=== PATIENT | female | born 1960 | race Caucasian/White ===

== ENCOUNTER → 2021-10-06 | Outpatient (CLI) | payer OTHER ==
[~2021-10-06] MED LIST: SODIUM CHLORIDE 0.9% 500 ML 500 ML in EMPTY BAG 1 BAG IV PRN; ZOLEDRONIC ACID 5 MG in SODIUM CHLORIDE 0.9% 100 ML IV NR
[2021-10-06 13:39] VITALS: BP 125/76; PULSE 97; RESP 16; TEMP 97.9
== END ==
LOC: PROCWHC3 13:25
PROVIDERS: ATTEND Internal Medicine
DX: M81.0 Age-related osteoporosis without current pathological fracture (principal)
CPT/HCPCS: 96365; J3489

== ENCOUNTER → 2023-03-20 | Outpatient (CLI) | payer OTHER ==
--- NOTE | 2023-03-20 20:21 | CTL ---
EXAMINATION TYPE: CT Low Dose Lung DATE OF EXAM ORDERED: 03/20/2023 HISTORY: Nicotine dependence. Lung cancer screening CT DLP: 66.[address] CTDI: 1.9 mGy Automated exposure control for dose reduction was used. SCREENING VISIT: Initial COMPARISON: None TECHNIQUE: Low dose computed tomography scan was performed through the chest at 1 mm thick sections a nd reconstructed images in the coronal plane at [address] DIAGNOSTIC QUALITY: Satisfactory FINDINGS: LUNG NODULES: Present, detailed below: 1. There is a small peripheral density in the left lateral upper lobe measuring 0.3 cm. Series 6 imag e 18. LUNGS: COPD: Severity: None Fibrosis: Severity: None Lymph nodes: None Other findings: There is an azygos fissure, normal variant. RIGHT PLEURAL SPACE: Effusion: None Calcification: None Thickening: None Pneumothorax: None LEFT PLEURAL SPACE: Effusion: Calcification: None Thickening: None Pneumothorax: None HEART: Heart Size: Normal Coronary calcification: None Pericardial effusion: None OTHER FINDINGS: Upper abdomen: Normal Bony thorax: Normal Supraclavicular region: Normal Other: Ascending thoracic aorta at the level the main pulmonary artery measures 8.1 cm. The main pul monary artery at the bifurcation measures 2.6 cm. IMPRESSION: 1. Benign appearing findings FOLLOW UP CT CHEST RECOMMENDATION: Follow-up low-dose CT chest [address] LUNG RAD: 2
== END | disposition home or self-care (01) ==
LOC: RADCTMAIN 09:42
PROVIDERS: ATTEND Internal Medicine Critical Care Medicine
DX: Z12.2 Encounter for screening for malignant neoplasm of respiratory organs (principal); F17.200 Nicotine dependence, unspecified, uncomplicated
CPT/HCPCS: 71271

== ENCOUNTER → 2023-07-25 | Outpatient (CLI) | payer OTHER ==
[2023-07-25 16:59] LABS: INR 0.9 (<1.2); Partial Thromboplastin Time 22.9 sec (22.0-30.0); Prothrombin Time 9.9 sec (10.0-12.5)
[2023-07-25 20:21] LABS: HCT 47.9 % (37.2-46.3); HGB 14.9 g/dL (12.0-15.0); MCH 29.6 pg (27.0-32.0); MCHC 31.1 g/dL (32.0-37.0); Mean Platelet Volume 11.7 FL (9.5-12.2); NRBC Per 100 WBC 0 X 10*3/uL (0.00-0.01); Platelet Count 276 X 10*3/uL (140-440); RBC 5.04 X 10*6/uL (4.10-5.20); RDW 12.9 % (11.5-14.5); WBC 9.71 X 10*3/uL (4.50-10.00)
[2023-07-26 02:35] LABS: ALT 36 U/L (8-44); AST 30 U/L (13-35); Albumin 4.5 g/dL (3.8-4.9); Albumin/Globulin Ratio 1.96 Ratio (1.60-3.17); Alkaline Phosphatase 113 U/L (41-126); BUN/Creat Ratio 15.44 Ratio (12.00-20.00); Blood Urea Nitrogen 13.9 mg/dL (9.0-27.0); Carbon Dioxide 26.5 mmol/L (21.6-31.8); Chloride 104 mmol/L (96-109); Globulin 2.3 g/dL (1.6-3.3); Glucose 98 mg/dL (70-110); Potassium 5.1 mmol/L (3.5-5.5); Sodium 138 mmol/L (135-145); Total Bilirubin 0.2 mg/dL (0.3-1.2); Total Protein 6.8 g/dL (6.2-8.2)
== END | disposition home or self-care (01) ==
LOC: LABWHC1 15:30
PROVIDERS: ATTEND Orthopaedic Surgery
DX: M47.22 Other spondylosis with radiculopathy, cervical region (principal); M48.02 Spinal stenosis, cervical region
CPT/HCPCS: 36415; 80053; 82306; 85027; 85610; 85730

== ENCOUNTER → 2023-08-06 | Outpatient (CLI) | payer OTHER | END | disposition home or self-care (01) | LOC: LABPAT 09:10 | PROVIDERS: ATTEND Orthopaedic Surgery | DX: Z01.812 Encounter for preprocedural laboratory examination (principal); M47.22 Other spondylosis with radiculopathy, cervical region; M48.02 Spinal stenosis, cervical region; Z22.322 Carrier or suspected carrier of Methicillin resistant Staphylococcus aureus | CPT/HCPCS: 86850; 86900; 86901; 87070 ==

== ENCOUNTER 2023-08-13 10:41 | Observation (INO) | payer OTHER ==
--- NOTE | 2023-08-12 06:42 | P.HPOR ---
History of Present Illness H&P Date: 07/31/23 .D:Date: 07/31/23 : 10:42am .T:Title: [facility] History and Physical Date of :64 [id number]: NKDA Age: 63 year Height: 5'5" Weight: 126 lbs BMI: 20.97 kg/m2 Occupation: Disabled VAS: 7 Hand:Right Spine Surgery Risk Review Ms. Cloud is presenting for evaluation of cervical pain. It was my pleasure to have seen and examined Ms. Cloud. In our visit today we have had a chance to go over subjective complaints, physical examination findings and treatments including the natural course history without intervention and various interventional options. The patients imaging demonstrates: XRay Cervical AP/lateral 2 views taken at [facility] on 04/03/23 of Cervical Spine:images reviewed today with the patient and demonstrate spondylotic changes C5 through C7 with disc height loss facet arthropathy and flattening of the normal cervical lordosis. No fractures noted no instability C1-C2 or occipital cervical joints MRI of the Cervical Spine completed at [facility] on 12/13/2022: images reviewed today with the patient and demonstrate disc bulging C5 to C7 with moderate central stenosis. There is some bilateral foraminal stenosis related to this which is [id number]. Disc height loss is noted spondylosis desiccation ligamental hypertrophy noted. No fractures or other dislocations noted. On physical exam, Ms. Cloud demonstrates: An ache-like pain throughout the neck that radiates down into the bilateral upper extremities, associated with numbness and tingling. The patient reports experiencing increased weakness throughout the arms and decreased hand dexterity. She notes a shooting pain in both of her thumbs. Since last visit patient has received 2 steroid injections, the last being on 06/05, both with no relief. The patient notes that her symptoms are exacerbated by all activity, which makes it difficult for her to complete many of her daily tasks. The patient reports experiencing moderate sleep disturbances related to her ongoing pain and associated symptoms. I have explained to the patient that as their condition progresses it will cause further neurological deficits and eventual paralysis. Based on the patients imaging, physical exam, and the rapid progression and disabling nature of their symptoms, at this time I recommend surgery in the form of a: C5-7 ACDF I discussed the risk and benefits of this procedure at length with Ms. Cloud. The patient agreed to considered pursuing the procedure abovementioned. Prior to surgery, she should follow up with her PCP (Cardio, ID, IM etc) for clearance. Questions were invited and answered, and the patient wishes to proceed as outlined below. Currently, I am recommendin.C5-7 ACDF 2.Follow up with PCP for surgical clearance 3.Review of surgical risks and benefits as well as an educational packet on the proposed surgical procedure. Risks: All surgical procedures come with inherent risks, including those related to positioning, anesthesia, intraoperative findings, and postoperative complications. It is important to understand that surgery does not come with any guarantee of a successful outcome as complications and adverse events are always possible. The patient was given a handout in office today discussing the surgical procedure and risks associated with the intervention, both of which were discussed with the patient. These risks include but are not limited to the following: * Experiencing same, different or even worse symptoms in back, neck, arms, or legs compared to before surgery. Requiring further surgery or other forms of treatment presently or at some time in the future at same or other levels of the intended spine surgery. On an extreme but fortunately relatively rare basis severe complication such as blindness, stroke, heart attack, temporary and/or permanent nerve injury, paralysis, coma, or may occur, sometimes without known explanation. Surgical complications may include but are not limited to risk of infection, fluid accumulation in the surgical dissection site, including a seroma or hematoma, that requires additional surgery, wound drainage, bleeding, new numbness or weakness, vision changes/loss, spinal fluid leakage, non-healing and/or infected incision, headaches, difficulty or inability to swallow, hoarseness, hemopneumothorax, pneumothorax, impotence, retrograde ejaculation, vaginal dryness; injury to nerves, spinal cord, blood vessels, lymphatics or other vital organs (i.e., bowel injury, injury to the great vessels); heterotopic bone formation; complications related to the hardware such as screws, rods, cages including misplaced hardware, device failure, instrumentation at the wrong spine level, hardware fracture/breakage, or hardware loosening; vertebral failure of the spinal column above or below the newly placed hardware; retained surgical instrumentations or devices and the need for further surgery. * Medical risks of the planned spine surgery include but are not limited to generalized Infections to the whole body or local areas outside of the surgical site (sepsis), heart attack, bleeding, anaphylaxis, meningitis, s eizure, epilepsy, hearing loss, burn brink, laceration of the head or other areas of the body, bruising, hypersensitivity of the skin, bladder over distension; allergic reaction; shoulder injury related to positioning; fat, blood and air clots to other areas of the body like heart, lungs, brain; failure of internal organs such as lungs, kidneys, liver and excessive bleeding. If blood transfusions are necessary, note that transfusions may cause intolerance reactions such as anaphylaxis or other complex reactions. Despite best efforts, the results of spine surgery might not heal in terms of bone, soft tissues such as skin, fascia, ligaments, and joints. Additionally, in order to achieve best possible results, spine surgery may be carried out beyond the initially planned levels and involve decompression, fusion including insertion of hardware at levels other than the original intended area of surgical interest change some portions of the procedure in order to ensure the best possible outcomes. With spine surgery and spinal fusion, there are different off label uses of instrumentation (devices, implants and hardware) as well as biological substances (bone morphogenic proteins, demineralized bone matrix) as well as using extra bone from allograft sources (i.e. cadaver bone) or autograft (iliac crest bone, ribs, or the spine itself). The patient has been given information about these practices and their inherent risks and benefits. [facility] is an educational center that serves as a training facility for neurosurgical and orthopedic SECURITY INTELLIGENCE ANALYST and Nursing students. Physician assistants are medically trained surgical providers who function in the outpatient, inpatient, and operating room setting under the direct supervision of the attending surgeon. [facility] has multiple operating rooms with single and overlapping rooms running daily. They currently function under the required guidelines as produced by the Senate Finance Committee with regards to the overlapping rooms and will continue to comply with changes to this policy as they occur. The requirements include and are complied with as follows: (1) the critical portions of the overlapping rooms will not occur at the same time, (2) the attending physician will be physically present during the critical portions of the procedure and immediately available during the entire case, and (3) a back-up attending is designated should the primary attending not be immediately available. The patient has had a chance to review all the listed information, has been given print outs detailing this information, and has had all his/her questions answered to their satisfaction. It was my pleasure to have seen and examined Ms. Cloud. In our visit today we have had a chance to go over my understanding of our patient's current condition, the natural course history without intervention and various interventional options. Questions were invited and answered, and the patient wishes to proceed as outlined above. I have seen and examined the patient for 25 minutes and we have spent more than 50% of the time in repeat and detailed counseling about the patient's condition, its natural course history with out and as much as can be predicted with surgery and re-review of various surgical treatment options. In conclusion, Ms. Cloud requested we proceed with the above suggested surgery and are willing to accept risks and limitations of the suggested surgery as nature of the disease process and our best attempts at treatment for the condition. Thank you again for allowing us to be part of your patient's care. Please don't hesitate to contact me if you have any further questions. Follow-up: Post procedure Patient Education: (Informational booklet, instructions, etc) given at today's appointment: Yes .ED:Patient Education: Y Medications Reviewed: YES In our visit today Ms. Cloud and I have had a chance to go over my understanding of the patient's current condition, the natural course history without intervention and various interventional options. Questions were invited and answered, and the patient wishes to proceed as outlined above. I will be sure to keep you updated afterMs. Cloud returns here for further follow-up. Thank you again for your referral. Please do not hesitate to contact me if you have any further questions. Signed and authenticated by: Srikanth [facility]vasive Spine [facility] [address] [facility], [address] [address] This message is confidential, intended only for the named recipient(s) and may contain information that is privileged or exempt from disclosure under applicable law. If you are not the intended recipient(s), you are notified that the dissemination, distribution or copying of this information is strictly prohibited. If you received this message in error, please notify the sender then delete this message. Patient verbalizes understanding of the information discussed. The above note was initiated by Shelli Pizarro, physician recording service center assistant for Dr. Srikanth Hayes. This note has been reviewed by Dr. Hayes, who has made his personal changes and impressions for this document. CC: Kaylene Fregoso NP # SIGNED BY Srikanth Hayes (GOO)07/31/2023 11:44AM Past Medical History Past Medical History: Asthma, Cancer, COPD, GERD/Reflux, Hyperlipidemia, Osteoarthritis (OA), Rheumatoid Arthritis (RA), Thyroid Disorder Additional Past Medical History / Comment(s): hx. thyroid cancer-had surg., osteoporosis History of Any Multi-Drug Resistant Organisms: None Reported Past Surgical History: Appendectomy, Cholecystectomy, Hysterectomy Additional Past Surgical History / Comment(s): total thyroidectomy, left mastoid surg., myringotomy & tubes Past Anesthesia/Blood Transfusion Reactions: No Reported Reaction Smoking Status: Current every day smoker - Past Family History Mother Family Medical History: No Reported History Sister(s) Family Medical History: Pulmonary Embolus Additional Family Medical History / Comment(s): w/Covid Medications and Allergies Home Medications Medication Instructions Recorded Confirmed Type Albuterol Nebulized [Ventolin 2.5 mg INHALATION Q6H PRN 08/08/23 08/08/23 History Nebulized] Albuterol Sulfate [Proair 1 puff INHALATION Q6H PRN 08/08/23 08/08/23 History Digihaler] Atorvastatin [Lipitor] 40 mg PO DAILY 08/08/23 08/08/23 History Dicyclomine HCl 10 mg PO AC-TID 08/08/23 08/08/23 History Fluticasone Nasal [place] [Flonase 1 spray EA NOSTRIL DAILY 08/08/23 08/08/23 History Nasal [place]] Fluticasone/Umeclidin/Vilanter 1 puff INHALATION DAILY 08/08/23 08/08/23 History [Trelegy Ellipta 200-62.5-25] Gabapentin [Neurontin] 300 mg PO BID 08/08/23 08/08/23 History Levocetirizine Dihydrochloride 5 mg PO DAILY 08/08/23 08/08/23 History [Xyzal] Levothyroxine Sodium [Synthroid] 88 mcg PO DAILY 08/08/23 08/08/23 History Naproxen [Naprosyn] 500 mg PO BID 08/08/23 08/08/23 History Omeprazole [PriLOSEC] 20 mg PO AC-BRKFST 08/08/23 08/08/23 History oxyBUTYnin chloride [oxyBUTYnin 5 mg PO DAILY 08/08/23 08/08/23 History chloride ER] Allergies Allergy/AdvReac Type Severity Reaction Status Date / Time No Known Allergies Allergy Verified 08/08/23 14:24 Physical Examination Osteopathic Statement: *. No significant issues noted on an osteopathic structural exam other than those noted in the History and Physical/Consult.
[~2023-08-13 10:41] MED LIST changes: +ACETAMINOPHEN TAB 500 MG TAB PO PRN; +GABAPENTIN 300 MG CAP PO PRN; +ONDANSETRON 4 MG/2 ML VIAL IVP PRN; -SODIUM CHLORIDE 0.9% 500 ML 500 ML in EMPTY BAG 1 BAG IV PRN; +TRANEXAMIC 1,000 MG/100ML-NACL 1,000 MG in SALINE 1 100ML.BAG IVPB PRN; -ZOLEDRONIC ACID 5 MG in SODIUM CHLORIDE 0.9% 100 ML IV NR
[2023-08-13] MEDS: LACTATED RINGERS 1,000 ML IV SCH ×3 (11:23→13:05)
[2023-08-13] MEDS ORDERED: MIDAZOLAM 2 MG/2 ML VIAL ONE (13:05)
[2023-08-13] MEDS ORDERED: KETAMINE HCL IN 0.9 % NACL 50 MG/5 ML SYRINGE ONE (13:05)
[2023-08-13] MEDS ORDERED: GLYCOPYRROLATE 0.2 MG/ML 2 ML VIAL ONE (13:05)
[2023-08-13] MEDS ORDERED: TRANEXAMIC 1,000 MG/100ML-NACL PREMIX BAG ONE (13:05)
[2023-08-13] MEDS ORDERED: NEOSTIGMINE 1 MG/ML 10 ML VIAL ONE (13:05)
[2023-08-13] MEDS ORDERED: hydrALAZINE HCL 20 MG/ML 1 ML VIAL ONE (13:05)
[2023-08-13] MEDS ORDERED: LIDOCAINE 1% INJ 10MG/ML (20 ML MDV) ONE (13:05)
[2023-08-13] MEDS ORDERED: fentaNYL (PF) 50 MCG/ML 2 ML AMP ONE (13:05)
[2023-08-13] MEDS ORDERED: HYDROmorphone (PF) 1 MG/ML ONE (13:05)
[2023-08-13] MEDS ORDERED: PROPOFOL 10 MG/ML 20 ML VIAL IV ONE (13:05)
[2023-08-13] MEDS ORDERED: LABETALOL SYRINGE 5 MG/ML (4 ML SYR) ONE (13:05)
[2023-08-13] MEDS ORDERED: ROCURONIUM 10 MG/ML (5 ML VIAL) IV ONE (13:05)
[2023-08-13] MEDS ORDERED: SUCCINYLCHOLINE CHLORIDE 200 MG/10 ML VIAL IV ONE (13:05)
[2023-08-13] MEDS ORDERED: THROMBIN (BOVINE) 5,000 UNIT VIAL TOPICAL ONE (13:41)
[2023-08-13] MEDS ORDERED: GELATIN SPONGE,ABSORB (LARGE) 1 EACH SPONGE TOPICAL ONE (13:41)
[2023-08-13] MEDS ORDERED: MAGNESIUM HYDROXIDE 2,400 MG/30 ML CUP PO PRN (16:01)
[2023-08-13] MEDS ORDERED: HYDROcodone/APAP 5-325MG 1 EACH TAB PO PRN (16:01)
[2023-08-13] MEDS ORDERED: CYCLOBENZAPRINE 5 MG TAB PO PRN (16:01)
[2023-08-13] MEDS ORDERED: HYDROmorphone 1 MG/ML 1 ML SYRINGE IVP PRN (16:01)
[2023-08-13] MEDS ORDERED: NA PHOS,M-B/NA PHOS,DI-BA 133 ML ENEMA RECTAL PRN (16:01)
--- NOTE | 2023-08-13 16:10 | P.OP ---
Date of Procedure: 08/13/23 Preoperative Diagnosis: 1. 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 NECK KPAIN 3. UE RADICULOPATHY WITH PARESTHESIAS 4. UE WEAKNESS 5. COMPLEX MEDICAL PATIENT Postoperative Diagnosis: 1. 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 NECK KPAIN 3. UE RADICULOPATHY WITH PARESTHESIAS 4. UE WEAKNESS 5. COMPLEX MEDICAL PATIENT Procedure(s) Performed: 1. C5-6, C6-7 ANTERIOR CERVICAL DISECTOMY AND ARTHRODESIS (05449, [id number]) 2. APPLICATION OF NON-INTEGRATED ANTERIOR PLATES (48191) 3. INSERTION OF BIOMECHANICAL DEVICE C5-6, C6-7 ([id number]) USE OF IONM USE OF IO MICROSCOPE Implants: GLOBUS COALITION INTERBODY X2 GLOBUS COLAITION PLATE X2 VENTRIS BIO Anesthesia: GETA Surgeon: Srikanth Hayes Diathermy Equipment Repairer #1: Glenna Faye (WAS PRESENT AND ASSISTED WITH ALL ASPECTS OF THE CASE FROM POSITION TO CLOSURE) Estimated Blood Loss (ml): 50 IV fluids (ml): 2,200 Urine output (ml): 0 Pathology: none sent Condition: stable Disposition: PACU Indications for Procedure: Ms. Cloud is presenting for evaluation of cervical pain. It was my pleasure to have seen and examined Ms. Cloud. In our visit today we have had a chance to go over subjective complaints, physical examination findings and treatments including the natural course history without intervention and various interventional options. The patients imaging demonstrates: XRay Cervical AP/lateral 2 views taken at [facility] on 04/03/23 of Cervical Spine:images reviewed today with the patient and demonstrate spondylotic changes C5 through C7 with disc height loss facet arthropathy and flattening of the normal cervical lordosis. No fractures noted no instability C1-C2 or occipital cervical joints MRI of the Cervical Spine completed at [facility] on 12/13/2022: images reviewed today with the patient and demonstrate disc bulging C5 to C7 with moderate central stenosis. There is some bilateral foraminal stenosis related to this which is [id number]. Disc height loss is noted spondylosis desiccation ligamental hypertrophy noted. No fractures or other dislocations noted. On physical exam, Ms. Cloud demonstrates: An ache-like pain throughout the neck that radiates down into the bilateral upper extremities, associated with numbness and tingling. The patient reports experiencing increased weakness throughout the arms and decreased hand dexterity. She notes a shooting pain in both of her thumbs. Since last visit patient has received 2 steroid injections, the last being on 06/05, both with no relief. The patient notes that her symptoms are exacerbated by all activity, which makes it difficult for her to complete many of her daily tasks. The patient reports experiencing moderate sleep disturbances related to her ongoing pain and associated symptoms. I have explained to the patient that as their condition progresses it will cause further neurological deficits and eventual paralysis. Based on the patients imaging, physical exam, and the rapid progression and disabling nature of their symptoms, at this time I recommend surgery in the form of a: C5-7 ACDF I discussed the risk and benefits of this procedure at length with Ms. Cloud. The patient agreed to considered pursuing the procedure abovementioned. Prior to surgery, she should follow up with her PCP (Cardio, ID, IM etc) for clearance. Questions were invited and answered, and the patient wishes to proceed as outlined below. Currently, I am recommendin.C5-7 ANTERIOR CERVICAL DISCECTOMY AND FUSION Description of Procedure: C5-7 ACDF The patient was seen and examined in the preoperative area. All preoperative protocols were followed. Informed consent was obtained, risks and benefits of the procedure were discussed at length. Risks including bleeding infection damage to the surrounding tissue and risk of reoperation were discussed with the patient. Risk of anesthesia up to and including was discussed with the patient. These are outlined in the risk review. They were willing to accept these risks and all the risks of surgery. The patient was given a weight-based dose of antibiotics in the form of 2 g Ancef. The patient was seen and evaluated by the anesthesia team who deemed them fit for surgery. The site was marked, the patient was willing to proceed with the procedure. The patient was transferred to the operative suite by the Department of anesthesia. They were then drifted off to sleep by the department anesthesia and GETA was performed. The patient tolerated this well. Alejandro catheter was placed by nursing staff, a-traumatically. Once confirmation of lines and ventilation the patient was transferred to a Supine Zander table very carefully. All bony prominences including wrists, elbows, axilla, chest, hips, and thighs, and feet were padded very well. Special attention was paid to the genitalia, and these were padded accordingly. SCDs were placed on bilateral lower extremities and were connected. Arms were well padded and placed at their side thumbs up. Once in position, again we confirmed good ventilation capabilities and that lines were running appropriately. The patients Cervical spine was then exposed. 1010s were placed outlining the incision site. Standard alcohol was used to clean the incision site and allowed to dry. C-arm was used to bio-luz the patient and confirm level for incision which was marked with a skin marker. Operative briefing was performed with all teams and everyone in agreement to proceed. The patient was then prepped and draped in a normal sterile fashion. Timeout was then performed, and all parties agreed with the procedure to be performed. Transverse skin incision was then made on the right side of the patient's neck 3 cm and dissection taken down to the platysma which was split transversely. Sub platysma flap was made, and interval identified between SCM and medial structures. Omohyoid was visualized and protected. Blunt dissection taken down to the anterior cervical fascia which was identified. Blunt probe was then placed and lateral image taken which confirmed levels for operation. These levels were then marked with a bovi. Subperiosteal dissection of the longissimus muscles were then done over these levels identifying uncovertebral joints bilaterally. Retractor was then placed deep to these muscles and held in place with a bed arm. Starting at C6-7, [place] pins were placed into C6 and C7 and gentle distraction taken out over the levels. Nya rongeur used to remove disc material. Operating microscope brought in for visualization. Complete discectomy performed at this level with curette, rongure and pituitary. High speed sarah used to remove osteophytes anteriorly and posteriorly until PLL was identified. 6-0 up curette then used to identify the canal and resect the PLL. 2-0 and 3-0 [place] used then to remove PLL and disc herniation and perfo rmed b/l foraminotomies. Once good decompression was accomplished, meticulous hemostasis was performed. Sizers were then placed under lateral fluoroscopy until the desired height and lordosis. Cage was then selected, packed with autograft and allograft and placed under lateral imaging. Once in good position it was tested and stable. Motors run before and after cage placement were stable. The wound was irrigated, and autograft placed lateral to the cage anteriorly for fusion. [place] pin was then removed from C7 and placed into C5. Gentle distraction taken out over C5-6 now. Complete discectomy done at C5-6 as described including decompression, b/l foraminotomies and PLL resection. Burring of endplates was minimal, osteophytes removed as described. Spacers were then sized and placed under lateral imaging. Cage selected, packed with graft and placed under lateral images. Once in position, meticulous hemostasis performed, and motors remained stable before and after cage placement. AP image confirmed good placement of cages. Wound was irrigated. Separate plates were then selected and placed over C6-7 and C5-6 with screws into each body. Each screw had good purchase and was locked to the plate and cage with the locking mechanism. Final AP and lateral images taken confirmed good placement of hardware and good reduction and tenriism of height. The wound was then irrigated copiously with NSS. Surgicel placed deep in the wound. A deep drain placed out a separate incision and sewed into place. Layered closure then performed with 3- 0 Vicryl in the platysma and subQ tissue. 4-0 Strata fix in the subcuticular tissue. The wound was then cleaned, and dried and skin glue placed. Once glue dried on Opifoam was placed. The patient was then transferred back to their hospital bed a-traumatically. The drain continued to hold suction. They were placed in a soft collar. They were then awakened by the department of anesthesia having tolerated the procedur e well without complications.
[2023-08-13] MEDS: HYDROmorphone 0.5 MG/0.5 ML SYRINGE IVP PRN ×3 (16:22→20:34)
--- NOTE | 2023-08-13 16:22 | XR ---
Fluoroscopy History: CERVICAL FUSION anterior cervical discectomy and fusion C5-7. FL time 50.2 seconds. DAP 1.2004. [address] Carl ríos.
[2023-08-13] MEDS ORDERED: ALBUTEROL NEBULIZED 2.5 MG/3 ML INHALATION PRN (19:04)
[2023-08-13] MEDS ORDERED: ALBUTEROL SULFATE 90 MCG INHALATION PRN (19:04)
[2023-08-13] MEDS: GABAPENTIN 300 MG CAP PO SCH (20:33)
--- NOTE | 2023-08-13 20:57 | FL ---
Intraoperative/procedural fluoroscopic services were provided. Total fluoroscopy time is 50.2 seconds with a total of 4 submitted images to PACS. Please see the operative/procedural note for further det ails. DAP: 1.5094 Gycm2
[2023-08-13] MEDS: ONDANSETRON 4 MG/2 ML VIAL IVP PRN (22:03)
[2023-08-13] MEDS: HYDROcodone/APAP 10-325MG 1 EACH TAB PO PRN (22:33)
[2023-08-13] MEDS ORDERED: TRIMETHOBENZAMIDE 100 MG/ML 2 ML VIAL IM PRN (23:30)
[2023-08-14] MEDS: PANTOPRAZOLE 40 MG/10 ML VIAL IVP SCH ×3 (00:35→20:53)
--- NOTE | 2023-08-14 00:42 | CT ---
EXAM: CT Cervical Spine Without Intravenous Contrast CLINICAL HISTORY: ITS.REASON CT Reason: s/p C5-C7 TECHNIQUE: Axial computed tomography images of the cervical spine without intravenous contrast. CTDI is 8.34 mGy and DLP is 247.6 mGy-cm. This CT exam was performed using one or more of the following dose reduction techniques: automated exposure control, adjustment of the mA and/or kV according to patient size, and/or use of iterative reconstruction technique. COMPARISON: No relevant prior studies available. FINDINGS: Vertebrae: Unfused posterior arch of C1. ACDF changes at C5-6 and C6- 7. Hardware is intact. Osteopenia. Cervical degenerative disc disease and facet arthropathy. Straightening of the cervical spine. Minimal degenerative listhesis. No acute fracture. Discs/spinal canal/neural foramina: Multilevel neural foraminal stenosis. This is most severe at C5-6 and C6-7. Disc osteophyte complexes result in mild to moderate degrees of spinal canal stenosis, greatest at C5-6 and C6-7. Soft tissues: Small foci of gas in the soft tissues of the neck the right. Small amount of retropharyngeal gas. There is some prevertebral edema. Minimal fluid in the soft tissues of the neck at the level of the drainage catheter. Lung apices: Emphysematous changes in the lungs. Tubes, lines and devices: There is a drainage catheter in the right neck with tip terminating at the level of C4-C5. IMPRESSION: 1. ACDF changes at C5-6 and C6-7. Hardware is intact. 2. Cervical degenerative disc disease and facet arthropathy as described.
[2023-08-14] MEDS: HYDROcodone/APAP 10-325MG 1 EACH TAB PO PRN ×3 (05:35→18:32)
[2023-08-14] MEDS: LEVOTHYROXINE 88 MCG TAB PO SCH (05:36)
[2023-08-14] MEDS: HYDROmorphone 0.5 MG/0.5 ML SYRINGE IVP PRN (06:47)
[2023-08-14] MEDS ORDERED: PANTOPRAZOLE 40 MG TABLET PO SCH (07:30)
[2023-08-14 08:53] LABS: Blood Urea Nitrogen 6.6 mg/dL (9.0-27.0); Calcium 8.5 mg/dL (8.7-10.3); Chloride 104 mmol/L (96-109); Glucose 109 mg/dL (70-110); Potassium 4.2 mmol/L (3.5-5.5); Sodium 140 mmol/L (135-145)
[2023-08-14] MEDS: SENNOSIDES-DOCUSATE SODIUM 1 EACH TAB PO SCH (08:55)
[2023-08-14] MEDS: ATORVASTATIN 40 MG TAB PO SCH (08:55)
--- NOTE | 2023-08-14 08:57 | P.PN ---
Subjective Progress Note Date: 08/14/23 Principal diagnosis: 1. C5-C6, C6-C7 severe spondylosis with stenosis 2. Neck pain 3. Bilateral upper extremity radiculopathy with paresthesias 4. Bilateral upper extremity weakness Patient seen and examined this morning. Patient is resting comfortably in bed. This is a patient with removal of hard cervical collar, RADHA drain has been removed. Surgical incision is well approximated with glue intact. No active drainage. New dressing has been applied, hard cervical collar replaced. Patient continues to have numbness to her bilateral upper extremities which was present prior to procedure. Patient has complaint of difficulty with swallowing, encouraged patient to continue to utilize ice therapy and trial soft foods. Medications will be adjusted. Informed patient that she will be working with physical therapy today, pending evaluation home with home care later today. No acute concerns. Objective - Vital Signs Vital signs: Vital Signs Temp 98.5 F 08/14/23 00:50 Pulse 66 08/14/23 00:50 Resp 18 08/14/23 00:50 BP 144/80 08/14/23 00:50 Pulse Ox 98 08/14/23 00:50 FiO2 Intake & Output 08/13/23 08/14/23 08/14/23 18:59 06:59 18:59 Intake Total 1950 Output Total 30 515 Balance 1920 -515 Weight 55.1 kg Intake: IV 1950 Output: Drainage 15 Neck 15 Urine 500 Estimated Blood Loss 30 Other: # Voids 1 - Exam Physical Examination General: The patient is awake and alert, in no acute distress Skin: Skin is warm and dry with no obvious rashes or lesions. Right anterior cervical incision, edges are well approximated with glue intact. RADHA drain has been removed. New dressing has been applied. Eye: Pupils are equal, round and reactive to light, extra-ocular movements are intact; there is normal conjunctiva bilaterally. Neck: The neck is supple, there is mild tenderness with limited range of motion due to pain and surgical procedure; hard cervical collar intact. Cardiovascular: There is a regular rate and rhythm. No murmur, rub or gallop is appreciated. Respiratory: Lungs are clear to auscultation, respirations are non-labored, breath sounds are equal. Gastrointestinal: Soft, non-distended, non-tender abdomen. Back: There is no tenderness to palpation in the midline, paralumbar, parathoracic or buttocks region. There is no obvious deformity . Musculoskeletal: ROM limited secondary to pain and stiffness from surgical procedure. Muscle strength in all major muscle groups of bilateral upper extremities 4/5, bilateral lower extremities 5/5. Neurological: CN 2-12 intact. There are no obvious motor or sensory deficits. Movement and coordination equal and intact. Sensory exam to light touch intact C5-T1 and intact from L2-S1. Reflexes 2/4 in bilateral upper and lower extremities. Negative Hoffmans, babinski, and clonus signs. Psychiatric: Cooperative, appropriate mood & affect, normal judgment. Assessment and Plan Assessment: Postop day 1: C5-C7 ACDF 1. C5-C6, C6-C7 severe spondylosis with stenosis 2. Neck pain 3. Bilateral upper extremity radiculopathy with paresthesias 4. Bilateral upper extremity weakness Plan: -Appreciate contaminated land consultant and team management. -Activity: Ambulate QID, OOB all meals, up and about, limit lifting bending twisting to less than 5 lbs. Use walker or cane if needed for stability. -Daily PT/OT, increase ambulation strength and balance. -Hard cervical collar at all times, may remove for showers until follow-up. -Pain control: Adequate at this time -Meds: reviewed -GI ppx: senna, Miralax -DVT PPX: Heparin -Hygiene: Shower today. Maintain dressing clean and dry. -Encourage IS 10x/hr -Dispo: Anticipate discharge home later today with homecare *I reviewed and discussed this case with my attending Dr. Hayes, whom has reviewed this chart and films and is in agreement with assessment and plan of care as outlined above. I have personally seen and examined the patient, performed the documentation and the assessment and plan as written. Number of minutes spent on the visit: 20m.
[2023-08-14] MEDS: OXYBUTYNIN XL 5 MG TAB.ER.24 PO SCH (08:58)
[2023-08-14] MEDS: GABAPENTIN 300 MG CAP PO SCH ×2 (08:58→20:52)
[2023-08-14] MEDS: ONDANSETRON 4 MG/2 ML VIAL IVP PRN (09:04)
[2023-08-14] MEDS: FLUTICASONE 50MCG/SPRAY NASAL 16GM EA NOSTRIL SCH (09:33)
[2023-08-14 09:35] LABS: Basophils # (A) 0.04 X 10*3/uL (0.00-0.10); Basophils % (A) 0.2 %; Eosinophils # (A) 0 X 10*3/uL (0.04-0.35); Eosinophils % (A) 0 %; HCT 41.5 % (37.2-46.3); HGB 13.1 g/dL (12.0-15.0); Lymphocytes % (A) 10.6 %; MCH 30.4 pg (27.0-32.0); MCHC 31.6 g/dL (32.0-37.0); MCV 96.3 FL (80.0-97.0); Mean Platelet Volume 11.8 FL (9.5-12.2); Monocytes # (A) 1.09 X 10*3/uL (0.20-1.00); Monocytes % (A) 6.4 %; NRBC Per 100 WBC 0 X 10*3/uL (0.00-0.01); Neutrophils # (A) 13.89 X 10*3/uL (1.80-7.70); Neutrophils % (A) 82.3 %; Platelet Count 237 X 10*3/uL (140-440); RBC 4.31 X 10*6/uL (4.10-5.20); RDW 13.1 % (11.5-14.5); WBC 16.91 X 10*3/uL (4.50-10.00)
--- NOTE | 2023-08-14 14:14 | CONS ---
CONSULTATION REASON FOR CONSULTATION: Advice regarding asthma and other medical issues, requested by Orthopedic Surgery. HISTORY OF PRESENT ILLNESS: This is a 63-year-old woman with a past medical history of asthma, COPD, and other multiple medical problems, admitted after C5-C7 anterior cervical diskectomy and fusion. Postoperatively, the patient had some vomiting. There is no history of any fever, rigors, or chills at this time. PAST MEDICAL HISTORY: Asthma, COPD, GERD, history of EtOH per chart. HOME MEDICATIONS: Prior to admission, albuterol. Doses and rest of medications noted. ALLERGIES: None. FAMILY HISTORY: No history of heart disease or strokes in the family. SOCIAL HISTORY: History of smoking. REVIEW OF SYSTEMS: A 14-point review is negative except as mentioned earlier. PHYSICAL EXAMINATION: VITAL SIGNS: Pulse is 63, blood pressure 119/60, respirations 16. HEENT: Conjunctivae normal. NECK: No JVD. Status post surgery. CARDIOVASCULAR: S1, S2 muffled. RESPIRATIONS: Breath sounds diminished at the bases. ABDOMEN: Soft, nontender. LEGS: No edema. NERVOUS SYSTEM: Nonfocal. LABORATORY DATA: WBC 16. Rest of the labs are noted. ASSESSMENT: 1. Status post cervical surgery, C5-C7 anterior fusion. 2. Increased WBC. 3. Postoperative nausea and vomiting. 4. Acute gastritis. 5. Asthma, chronic obstructive pulmonary disease. 6. Gastroesophageal reflux disease. 7. History of EtOH. RECOMMENDATIONS: Recommend to continue current medications, continue symptomatic treatment. Protonix. CIWA protocol may be initiated. The patient has no signs of withdrawal. Otherwise, continue to monitor. UA with micro. We will follow the patient closely. Resume home medications. Further recommendations to follow. MMODL / IJN: [id number] /
[2023-08-14] MEDS: SYMBICORT 160-4.5 MCG INHALER INHALATION SCH ×2 (15:12→21:40)
[2023-08-14] MEDS: DICYCLOMINE 10 MG CAP PO SCH (16:15)
[2023-08-14] MEDS: IPRATROPIUM 0.5 MG/2.5 ML NEBU INHALATION SCH ×2 (16:50→21:40)
[2023-08-14 22:29] LABS: Appearance,Urine Clear (Clear); Bilirubin,Urine Negative (Negative); Blood,Urine Negative (Negative); Color,Urine Yellow; Glucose,Urine (UA) Negative (Negative); Ketones,Urine Negative (Negative); Leukocyte Esterase,Urine Negative (Negative); Nitrite,Urine Negative (Negative); Protein,Urine Negative (Negative); Urobilinogen,Urine <2.0 mg/dL (<2.0)
[2023-08-15] MEDS: HYDROcodone/APAP 10-325MG 1 EACH TAB PO PRN ×2 (02:16→08:35)
[2023-08-15] MEDS: LEVOTHYROXINE 88 MCG TAB PO SCH (06:25)
[2023-08-15] MEDS: LACTATED RINGERS 1,000 ML IV SCH (06:25)
[2023-08-15] MEDS: DICYCLOMINE 10 MG CAP PO SCH ×2 (06:25→12:36)
[2023-08-15 07:20] LABS: Basophils % (A) 0 %; Eosinophils # (A) 0.1 k/uL (0-0.7); Eosinophils % (A) 1 %; HCT 39.1 % (34.0-46.0); HGB 12.7 gm/dL (11.4-16.0); Lymphocytes # (A) 2.3 k/uL (1.0-4.8); Lymphocytes % (A) 17 %; MCH 31.2 pg (25.0-35.0); MCHC 32.6 g/dL (31.0-37.0); MCV 95.8 fL (80.0-100.0); Mean Platelet Volume 8.4; Monocytes # (A) 0.6 k/uL (0-1.0); Monocytes % (A) 4 %; Neutrophils # (A) 10.2 k/uL (1.3-7.7); Neutrophils % (A) 77 %; Platelet Count 183 k/uL (150-450); RBC 4.08 m/uL (3.80-5.40); RDW 12.4 % (11.5-15.5); WBC 13.3 k/uL (3.8-10.6)
[2023-08-15 08:12] VITALS: BP 129/61; RESP 17; TEMP 98.6
[2023-08-15] MEDS: SYMBICORT 160-4.5 MCG INHALER INHALATION SCH (08:24)
[2023-08-15] MEDS: IPRATROPIUM 0.5 MG/2.5 ML NEBU INHALATION SCH ×2 (08:24→11:28)
--- NOTE | 2023-08-15 08:34 | P.PN ---
Subjective Progress Note Date: 08/15/23 Principal diagnosis: 1. C5-C6, C6-C7 severe spondylosis with stenosis 2. Neck pain 3. Bilateral upper extremity radiculopathy with paresthesias 4. Bilateral upper extremity weakness Patient seen and examined this morning. Patient is resting comfortably in bed. She reports that she is feeling much better today. Patient denies any nausea or vomiting. Surgical dressing to the anterior cervical spine is clean dry and intact. Hard cervical collar is in place. Patient is looking forward to discharge later today. No acute concerns. Objective - Vital Signs Vital signs: Vital Signs Temp 98.6 F 08/15/23 07:17 Pulse 78 08/15/23 08:25 Resp 17 08/15/23 07:17 BP 129/61 08/15/23 07:17 Pulse Ox 98 08/15/23 08:25 FiO2 Intake & Output 08/14/23 08/15/23 08/15/23 18:59 06:59 18:59 Output Total 200 Balance -200 Output: Emesis 200 Other: # Voids 2 1 - Exam Physical Examination General: The patient is awake and alert, in no acute distress Skin: Skin is warm and dry with no obvious rashes or lesions. Right anterior cervical incision, dressing CDI. Eye: Pupils are equal, round and reactive to light, extra-ocular movements are intact; there is normal conjunctiva bilaterally. Neck: The neck is supple, there is mild tenderness with limited range of motion due to pain and surgical procedure; hard cervical collar intact. Cardiovascular: There is a regular rate and rhythm. No murmur, rub or gallop is appreciated. Respiratory: Lungs are clear to auscultation, respirations are non-labored, breath sounds are equal. Gastrointestinal: Soft, non-distended, non-tender abdomen. Back: There is no tenderness to palpation in the midline, paralumbar, parathoracic or buttocks region. There is no obvious deformity . Musculoskeletal: ROM limited secondary to pain and stiffness from surgical procedure. Muscle strength in all major muscle groups of bilateral upper extremities 4/5, bilateral lower extremities 5/5. Neurological: CN 2-12 intact. There are no obvious motor or sensory deficits. Movement and coordination equal and intact. Sensory exam to light touch intact C5-T1 and intact from L2-S1. Reflexes 2/4 in bilateral upper and lower extremities. Negative Hoffmans, babinski, and clonus signs. Psychiatric: Cooperative, appropriate mood & affect, normal judgment. - Labs CBC & Chem 7: 08/15/23 07:10 08/14/23 05:49 Labs: Abnormal Lab Results - Last 24 Hours (Table) 08/14/23 08/14/23 08/15/23 Range/Units 05:49 05:49 07:10 WBC 16.91 H 13.3 H (4.50-10.00) X 10*3/uL MCHC 31.6 L (32.0-37.0) g/dL Immature Gran # 0.09 H (0.00-0.04) X 10*3/uL Neutrophils # 13.89 H 10.2 H (1.80-7.70) X 10*3/uL Monocytes # 1.09 H (0.20-1.00) X 10*3/uL Eosinophils # 0 L (0.04-0.35) X 10*3/uL BUN 6.6 L (9.0-27.0) mg/dL BUN/Creatinine Ratio 11.00 L (12.00-20.00) Ratio Calcium 8.5 L (8.7-10.3) mg/dL Assessment and Plan Assessment: Postop day 2: C5-C7 ACDF 1. C5-C6, C6-C7 severe spondylosis with stenosis 2. Neck pain 3. Bilateral upper extremity radiculopathy with paresthesias 4. Bilateral upper extremity weakness Plan: -Appreciate fitness consultant and team management. -Activity: Ambulate QID, OOB all meals, up and about, limit lifting bending t wisting to less than 5 lbs. Use walker or cane if needed for stability. -Daily PT/OT, increase ambulation strength and balance. -Hard cervical collar at all times, may remove for showers until follow-up. -Pain control: Adequate at this time -Meds: reviewed -GI ppx: senna, Miralax -DVT PPX: Heparin -Hygiene: Shower today. Maintain dressing clean and dry. -Encourage IS 10x/hr -Dispo: Anticipate discharge home later today with homecare *I reviewed and discussed this case with my attending Dr. Hayes, whom has reviewed this chart and films and is in agreement with assessment and plan of care as outlined above. I have personally seen and examined the patient, performed the documentation and the assessment and plan as written. Number of minutes spent on the visit: 20m.
[2023-08-15] MEDS: OXYBUTYNIN XL 5 MG TAB.ER.24 PO SCH (08:35)
[2023-08-15] MEDS: SENNOSIDES-DOCUSATE SODIUM 1 EACH TAB PO SCH (08:35)
[2023-08-15] MEDS: PANTOPRAZOLE 40 MG/10 ML VIAL IVP SCH (08:35)
[2023-08-15] MEDS: GABAPENTIN 300 MG CAP PO SCH (08:36)
[2023-08-15] MEDS: FLUTICASONE 50MCG/SPRAY NASAL 16GM EA NOSTRIL SCH (08:36)
[2023-08-15] MEDS: ATORVASTATIN 40 MG TAB PO SCH (08:36)
[2023-08-15 08:37] VITALS: PULSE 80
--- NOTE | 2023-08-15 08:50 | P.DS ---
Providers Date of admission: 08/14/23 15:49 Expected date of discharge: 08/15/23 Attending physician: Srikanth Hayes DO Consults: 08/13/23 16:03 Consult Physician Routine Consulting Provider: Erik Kunz Reason/Comments: Medical Management Do you want consulting provider notified?: Yes Primary care physician: Charlie Leiva [facility] Course: Hospital Course: The patient was evaluated preoperatively and found to have the diagnosis of cervical spondylosis with stenosis. They underwent appropriate preoperative care and were willing to undergo the intended procedure. They underwent a successful C5-C7 ACDF, were recovered appropriately and sent to the floor. While on the floor they worked with physical therapy, occupational therapy and nursing to enhance their recovery experience. Their pain was well controlled through their stay and they were started on appropriate medications, DVT ppx modalities, activity and dietary needs. Daily labs were monitored closely, and transfusions were only used when necessary. Medicine as well as other consulting services have made their input and have helped with our team approach and multidisciplinary care. PT milestones have been met and passed and they have made the recommendation of with home care for this patient and treating providers agree with this care path. The patient will be discharged home with appropriate medications, instructions and follow-up information and in stable condition. Patient Condition at Discharge: Good Plan - Discharge Summary Discharge Rx Participant: Yes New Discharge Prescriptions: New cefaDROXiL [Duricef] 500 mg PO Q12HR #10 cap Gabapentin 300 mg PO BID #60 cap HYDROcodone/APAP 10-325MG [[place] 10-325] 1 tab PO Q4-6H PRN #42 tab PRN Reason: Pain Sennosides/Docusate Sodium [Senna Plus 8.6-50 mg Tablet] 1 each PO DAILY PRN #20 tablet PRN Reason: Constipation Cyclobenzaprine [Flexeril] 5 mg PO TID PRN #30 tablet PRN Reason: Muscle Spasm No Action Levothyroxine Sodium [Synthroid] 88 mcg PO DAILY Atorvastatin [Lipitor] 40 mg PO DAILY Albuterol Sulfate [Proair Digihaler] 1 puff INHALATION Q6H PRN PRN Reason: Wheezing Albuterol Nebulized [Ventolin Nebulized] 2.5 mg INHALATION Q6H PRN PRN Reason: Shortness Of Breath Gabapentin [Neurontin] 300 mg PO BID Naproxen [Naprosyn] 500 mg PO BID Levocetirizine Dihydrochloride [Xyzal] 5 mg PO DAILY Fluticasone/Umeclidin/Vilanter [Trelegy Ellipta 200-62.5-25] 1 puff INHALATION DAILY Dicyclomine HCl 10 mg PO AC-TID oxyBUTYnin chloride [oxyBUTYnin chloride ER] 5 mg PO DAILY Fluticasone Nasal [place] [Flonase Nasal [place]] 1 spray EA NOSTRIL DAILY Omeprazole [PriLOSEC] 20 mg PO AC-BRKFST Discharge Medication List Albuterol Nebulized [Ventolin Nebulized] 2.5 mg INHALATION Q6H PRN 08/08/23 [History] Albuterol Sulfate [Proair Digihaler] 1 puff INHALATION Q6H PRN 08/08/23 [History] Atorvastatin [Lipitor] 40 mg PO DAILY 08/08/23 [History] Dicyclomine HCl 10 mg PO AC-TID 08/08/23 [History] Fluticasone Nasal [place] [Flonase Nasal [place]] 1 spray EA NOSTRIL DAILY 08/08/23 [History] Fluticasone/Umeclidin/Vilanter [Trelegy Ellipta 200-62.5-25] 1 puff INHALATION DAILY 08/08/23 [History] Gabapentin [Neurontin] 300 mg PO BID 08/08/23 [History] Levocetirizine Dihydrochloride [Xyzal] 5 mg PO DAILY 08/08/23 [History] Levothyroxine Sodium [Synthroid] 88 mcg PO DAILY 08/08/23 [History] Naproxen [Naprosyn] 500 mg PO BID 08/08/23 [History] Omeprazole [PriLOSEC] 20 mg PO AC-BRKFST 08/08/23 [History] oxyBUTYnin chloride [oxyBUTYnin chloride ER] 5 mg PO DAILY 08/08/23 [History] Cyclobenzaprine [Flexeril] 5 mg PO TID PRN #30 tablet 08/15/23 [Rx] Gabapentin 300 mg PO BID #60 cap 08/15/23 [Rx] HYDROcodone/APAP 10-325MG [[place] 10-325] 1 tab PO Q4-6H PRN #42 tab 08/15/23 [Rx] Sennosides/Docusate Sodium [Senna Plus 8.6-50 mg Tablet] 1 each PO DAILY PRN #20 tablet 08/15/23 [Rx] cefaDROXiL [Duricef] 500 mg PO Q12HR #10 cap 08/15/23 [Rx] Follow up Appointment(s)/Referral(s): Charlie Stubbs [Primary Care Provider] - 1 Week Srikanth Hayes DO [Doctor of Osteopathic Medicine] - 2 Weeks Activity/Diet/Wound Care/Special Instructions: Spine Discharge and Recovery Instructions Date of Surgery: 08/13/2023 Diagnosis: Cervical spondylosis with stenosis Procedure: C5-C7 ACDF Medications: See medication list All medication refills should be obtained through your primary care doctor or your clinic spine surgeon. Please discuss prescription refills at your follow up appointment. Do not call the hospital for medication refills. Activity: Encourage ambulation with assist of walker, Up and about 6-8x daily PT/OT daily work on balance, strength and mobility Up in chair with all meals Shower daily Brace: Use brace when up and about, do not wear in bed or shower Dressing: Leave your dressing in place for a total of 3 days post operatively. Then you may remove your dressing and leave open to air. Keep the area clean and if not able to keep area clean, then cover with sterile gauze and tape. Showering: You may shower 3 days after your procedure allowing soap and water to run over incision. Do not scrub. Do not soak. Blot dry. Follow up: Please confirm a follow up appointment with your surgeon 2 weeks post operatively. Please make an appointment to follow up with your PCP in 1-2 weeks after surgery for evaluation 3 phase, 3-week plan POST OP WEEKS 1-3 1. Lifting/carrying/pushing/pulling limited to less than 5 pounds. 2. Do not sit for longer than 15 minutes at one time. Get up and walk around. Prolonged sitting is NOT advised. If you lay down, see if you can tolerate laying down on you front (belly side) 3. Walk for periods of 15 minutes = 1 mile but no longer; do it multiple times times each day. 4. Ice your low back after activity. POST OP WEEKS 3-6 1. Lifting limited to less than 20 pounds. 2. Do not sit for longer than 30 minutes at a time. Frequently change positions. Use a sit-to stand workstation or take frequent breaks from sitting if you have returned to work. 3. Walk for 30 minutes each day. If possible, do these three or more times a day POST OP WEEKS 6+ At your 6-week appointment we will give you a physical therapy referral to focus on a core stabilization and strengthening program. You should also work on leg & buttock strengthening, hamstring & quadriceps stretching, and continue a low impact aerobic activity program such as swimming, walking, or riding a stationary bicycle. During the initial 6 weeks after your surgery, you are at the highest risk of re-injuring your spine. You should generally avoid BLTs (bending, lifting and twisting combination motions) and follow the above guidelines to reduce the chance of reinjury. You can anticipate post op appointments in our office at approximately 3 weeks and 6 weeks after your surgery. INCISION CARE: If your incision is not draining you do NOT need to cover it with a dressing. Keep your incision clean, dry and intact. In most cases, we apply skin glue, amanda or sutures to the incision at the time of surgery. This will be like a crust or have the appearance of a scab and will fall off in time on its own. The stitches or amanda need to be removed at 3 weeks post op appointment. You may begin to shower 3 days after surgery (this allows the glue to lacy well). However, please avoid scrubbing the incision site or peeling off any of the skin glue. This will ensure optimal healing of your incision. Also, during this time avoid soaking the incision area in water - this includes swimming pools, hot tubs or baths. No ointments, lotions or oils on the incision until your surgeon allows. Leave amanda, sutures or glue in place. Neurological dysfunction that comes on suddenly can also be a sign of a stroke. Below some common symptoms of a stroke are listed: B - balance difficulty such as sudden onset walking or leaning to one side - NEW E - eye problem such as sudden double vision or trouble seeing on one side - NEW F - Facial weakness or numbness on one side - NEW A - Arm or leg weakness or numbness on one side - NEW S - Slurred speech or difficulty with word finding - NEW T - Time is BRAIN! Call 911 as soon as you recognize these symptoms Diet: Consume a regular diet rich in vegetables and lean protein such as chicken or fish. You should consume in a ratio of approximately 20% fats|40% carbohydra erick|40%protein. Vegetables, sweet potatoes, brown rice or quinoa are examples of good carbohydrates. Chips, white bread, cookies and sweets/sugar are examples of bad carbohydrates. Limit your bad carbs, go wild with good carbs. 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 (1) Get Active. Physical activity can help people lose weight, control high blood pressure and cholesterol, feel emotionally better, and sleep better. (2) Control Cholesterol. Avoid a diet high in saturated fat, trans fat, & cholesterol. Limit whole milk & cream, ice cream, butter, egg yolks, processed meats (like sausage and hot dogs), and fatty meats. Choose healthy foods that are low in saturated fat, trans fat and cholesterol which include: Fruits and vegetables, fiber rich grain products (like whole grain pasta and brown rice), lean meat such as chicken, fish, nuts, seeds, and legumes. (3) Eat Better. Eat small portions. Shop at the grocery with a list and do not stray from it. Tips for a healthy diet include: Limit sodium intake to less than 1500mg daily, avoid prepackaged, processed, and fast foods, choose a diet rich in fruits, vegetables, and whole grain, high fiber foods, and limit saturated & cholesterol in your diet. (4) Manage Blood Pressure. If you have high blood pressure, you should have a cuff at home so that you can check your blood pressure regularly. Be sure you have a good cuff. An arm one is generally better than a wrist one. Bring the cuff to a doctor's appointment to validate that the measurements that your cuff are taking are accurate. Take your blood pressure twice daily when you are sitting down and relaxing. Record the numbers in a log and bring this log with you to your doctors' appointments. (5) Lose Weight if your BMI is above 25. A healthy BMI is between 19-25. To calculate Your BMI, you may use a Standard BMI Calculator on the NIH BMI website: <www.nhlbi.nih.gov/guidelines/obesity/BMI/bmicalc.htm>. Weigh oneself daily. If you are overweight, set a goal to lose weight. A pound a week loss if needed is a good target. (6) Reduce Blood Sugar. Limit foods and liquids with "added sugars." (Added sugars include sucrose, fructose, glucose, maltose, dextrose, high fructose corn syrup, corn syrup, concentrated fruit juice and honey). (7) Stop Smoking. If you smoke, quitting smoking is one of the best things that you can do for your health. Smoking increases your risk of heart attack, stroke, and peripheral vascular disease, which is a build-up of plaque in your arteries. Please discard all the cigarettes and lighters in your house. Have a plan for what you will do when you have the urge to smoke. Direct and second- hand smoke shortens your life as well as the lives of your family, friends and others around you. For your health and the health of those around you, please consider quitting! Proper Bending Body Mechanics: Maintain a wide stance with one foot slightly in front of the other. Keep your back straight. Bend utilizing the strength in your hips and knees. Do not bend at the waist. Maintain the lifted object at your waist-level close to your body. Avoid lifting weight that causes immediately pain or pain anywhere in the body afterwards. Smoking/Nicotine If there was ever one thing that you could do to increase your overall health, decrease your risk of cardiovascular problems by about 39% the second you make the choice, it is to STOP SMOKING. Your body's most instant gratification is the second you stop smoking. We have all heard the studies, read the articles but it is true, smoking is extremely bad for your overall health, and moreover it is detrimental to your bone health. Nicotine, IN ANY FORM, kills bone cells, prevents your body from healing fractures, and significantly prolongs healing after surgery. In spine surgery specifically, it increases your risk of not healing your bones to create a fusion and increases your risk of having a revision surgery due to this up to 60%. I know it is hard. I know it feels impossible. But there are ways. Take control of your life. We are here to help you through it. And when you are ready, ask us and we can direct you to help if you desire. Use the START Plan to Quit Smoking (please visit the Helpguide.org website listed below for more information): S = Set a quit date. Choose a date within the next 2 weeks, so you have enough time to prepare without losing your motivation to quit. If you mainly smoke at work, quit on the weekend, so you have a few days to adjust to the change. T = Tell family, friends, and co-workers that you plan to quit. Let your friends and family in on your plan to quit smoking and tell them you need their support and encouragement to stop. Look for a quit bahman who wants to stop smoking as well. You can help each other get through the rough times. A = Anticipate and plan for the challenges you'll face while quitting. Most people who begin smoking again do so within the first 3 months. You can help yourself make it through by preparing ahead for common challenges, such as nicotine withdrawal and cigarette cravings. R = Remove cigarettes and other tobacco products from your home, car, and work. Throw away all your cigarettes (no emergency pack!), lighters, ashtrays, and matches. Wash your clothes and freshen up anything that smells like smoke. Shampoo your car, clean your drapes and carpet, and steam your furniture. T = Talk to your doctor about getting help to quit. Your doctor can prescribe medication to help with withdrawal and suggest other alternatives. If you can't see a doctor, you can get many products over the counter at your local pharmacy or grocery store, including the nicotine patch, nicotine lozenges, and nicotine gum. Resources for Quitting Smoking: <https://www.[place].gov/documents/[facility]/Quit_Tobacco_Re sources_for_patients_313480_7.pdf> Supplementation: Take recommended dosages of Vitamin D and Calcium to help fortify your bones and help them to heal. See your health maintenance packet for dosages and recommended levels. DVT/VTE prophylaxis: You will be given compression stockings from the hospital. Wear these daily for the first two weeks after surgery. You may take them off at night. You may be prescribed a medication to help thin your blood. Take this as directed. If you are not prescribed this medication, early and frequent ambulation has been shown to be the best prophylaxis to deep vein thrombosis and sequelae related to this event. Discharge Disposition: HOME WITH HOME HEALTH SERVICES
== END 2023-08-15 13:25 | disposition home health service (06) ==
LOC: OR 10:41 → 4SSUR 16:05 → OR 08-14 15:32 → 4SSUR 08-14 15:49
PROVIDERS: ADMIT Orthopaedic Surgery; ATTEND Orthopaedic Surgery
DX: M47.22 Other spondylosis with radiculopathy, cervical region (principal); M48.02 Spinal stenosis, cervical region; M25.78 Osteophyte, vertebrae; K29.00 Acute gastritis without bleeding; J44.9 Chronic obstructive pulmonary disease, unspecified; K21.9 Gastro-esophageal reflux disease without esophagitis; E78.5 Hyperlipidemia, unspecified; E89.0 Postprocedural hypothyroidism; F17.200 Nicotine dependence, unspecified, uncomplicated; Z85.850 Personal history of malignant neoplasm of thyroid; Z79.899 Other long term (current) drug therapy; Z79.890 Hormone replacement therapy; Z79.51 Long term (current) use of inhaled steroids
CPT/HCPCS: 96376 ×3; 96365; 96366 ×2; 96372; 96375 ×2; 94640 ×3; 94760 ×2; 97116; 97162; 80048; 85025 ×2; 81003; 72040; 72125; 22551; 22552; 22853 ×2; 20930; 20936; G0378 ×2; C1713; J2250; J0330; J0360; J2710; J3250; J0690 ×2; J2405 ×2; J2001; J3010; J1170 ×4; J2704; C9113 ×2; J1920

== ENCOUNTER 2023-10-11 12:14 | Emergency (ER) | payer OTHER ==
[2023-10-11 12:42] VITALS: RESP 18; TEMP 98.1
--- NOTE | 2023-10-11 13:31 | XR ---
EXAMINATION TYPE: XR lumbar spine 2 or 3V DATE OF EXAM: 10/11/2023 CLINICAL HISTORY: pain TECHNIQUE: Three views of the lumbar spine are submitted. COMPARISON: None. FINDINGS: There are 5 lumbar type vertebral bodies identified. The lumbar spine shows satisfactory alignment w ithout evidence of acute fracture or dislocation. Vertebral body heights are within normal limits. Mild scattered degenerative disc space narrowing and spondylosis. The overlying soft tissue appears unremarkable. IMPRESSION: No acute fracture or dislocation is seen in the lumbar spine. ICD 10 NO FRACTURE, INITIAL EVALUATION
--- NOTE | 2023-10-11 13:31 | XR ---
EXAMINATION TYPE: XR Hip RT and AP Pelvis DATE OF EXAM: 10/11/2023 CLINICAL HISTORY: pain TECHNIQUE: AP and frogleg views of the right hip are obtained. COMPARISON: None. FINDINGS: There is no acute fracture/dislocation evident. The joint space appears within normal li mits. The overlying soft tissue appears unremarkable. Incidental bone island right inferior ischium. IMPRESSION: 1. There is no acute fracture or dislocation. ICD 10 NO FRACTURE, INITIAL EVALUATION
--- NOTE | 2023-10-11 14:18 | ED ---
Lower Extremity Injury HPI - General Chief Complaint: Extremity Injury, Lower Stated Complaint: Groin pain, lower back pain Time Seen by Provider: 10/11/23 12:26 Source: patient, RN notes reviewed Mode of arrival: ambulatory Limitations: no limitations - History of Present Illness Initial Comments: 63-year-old female presents emergency department with chief complaint of groin pain, back pain. Patient states that she tried to flower buncher or picker her on the floor who fell after back surgery. Patient states that she had instant pain to her right groin. Patient states that she has pain rating from her back to her knee. She denies any bowel, bladder retention. Denies any saddle anesthesia. Patient states she does have lower back pain. Patient has a history of lumbar issues. Patient denies any paresthesias - Related Data Home Medications Medication Instructions Recorded Confirmed Albuterol Nebulized [Ventolin 2.5 mg INHALATION Q6H PRN 08/08/23 08/13/23 Nebulized] Albuterol Sulfate [Proair 1 puff INHALATION Q6H PRN 08/08/23 08/13/23 Digihaler] Atorvastatin [Lipitor] 40 mg PO DAILY 08/08/23 08/13/23 Dicyclomine HCl 10 mg PO AC-TID 08/08/23 08/13/23 Fluticasone Nasal Concepcion [Flonase 1 spray EA NOSTRIL DAILY 08/08/23 08/13/23 Nasal Concepcion] Fluticasone/Umeclidin/Vilanter 1 puff INHALATION DAILY 08/08/23 08/13/23 [Trelegy Ellipta 200-62.5-25] Gabapentin [Neurontin] 300 mg PO BID 08/08/23 08/13/23 Levocetirizine Dihydrochloride 5 mg PO DAILY 08/08/23 08/13/23 [Xyzal] Levothyroxine Sodium [Synthroid] 88 mcg PO DAILY 08/08/23 08/13/23 Naproxen [Naprosyn] 500 mg PO BID 08/08/23 08/13/23 Omeprazole [PriLOSEC] 20 mg PO AC-BRKFST 08/08/23 08/13/23 oxyBUTYnin chloride [oxyBUTYnin 5 mg PO DAILY 08/08/23 08/13/23 chloride ER] Previous Rx's Medication Instructions Recorded Cyclobenzaprine [Flexeril] 5 mg PO TID PRN #30 tablet 08/15/23 Gabapentin 300 mg PO BID #60 cap 08/15/23 HYDROcodone/APAP 10-325MG [Shidler 1 tab PO Q4-6H PRN #42 tab 08/15/23 10-325] Ondansetron Odt [Zofran Odt] 4 mg PO Q8HR PRN #20 tab 08/15/23 Sennosides/Docusate Sodium [Senna 1 each PO DAILY PRN #20 tablet 08/15/23 Plus 8.6-50 mg Tablet] cefaDROXiL [Duricef] 500 mg PO Q12HR #10 cap 08/15/23 predniSONE 50 mg PO DAILY #5 tab 10/11/23 Allergies Allergy/AdvReac Type Severity Reaction Status Date / Time No Known Allergies Allergy Verified 10/11/23 12:23 Review of Systems ROS Statement: Those systems with pertinent positive or pertinent negative responses have been documented in the HPI. ROS Other: All systems not noted in ROS Statement are negative. Past Medical History Past Medical History: Asthma, Cancer, COPD, GERD/Reflux, Hyperlipidemia, Osteoarthritis (OA), Rheumatoid Arthritis (RA), Thyroid Disorder Additional Past Medical History / Comment(s): hx. thyroid cancer-had surg., osteoporosis History of Any Multi-Drug Resistant Organisms: None Reported Past Surgical History: Appendectomy, Cholecystectomy, Hysterectomy Additional Past Surgical History / Comment(s): total thyroidectomy, left mastoid surg., myringotomy & tubes Past Anesthesia/Blood Transfusion Reactions: No Reported Reaction Past Psychological History: No Psychological Hx Reported Smoking Status: Current every day smoker Past Alcohol Use History: Occasional Past Drug Use History: Marijuana - Past Family History Mother Family Medical History: No Reported History Sister(s) Family Medical History: Pulmonary Embolus Additional Family Medical History / Comment(s): w/Covid General Exam Limitations: no limitations General appearance: alert, in no apparent distress Head exam: Present: atraumatic, normocephalic, normal inspection Eye exam: Present: normal appearance, PERRL, EOMI. Absent: scleral icterus, conjunctival injection, periorbital swelling Respiratory exam: Present: normal lung sounds bilaterally. Absent: respiratory distress, wheezes, rales, rhonchi, stridor Cardiovascular Exam: Present: regular rate, normal rhythm, normal heart sounds. Absent: systolic murmur, diastolic murmur, rubs, gallop, clicks GI/Abdominal exam: Present: soft, normal bowel sounds. Absent: distended, tenderness, guarding, rebound, rigid Extremities exam: Present: normal inspection, full ROM, tenderness (Right groin tenderness, pain with abduction neurovascular intact), normal capillary refill. Absent: pedal edema, joint swelling, calf tenderness Course Vital Signs 10/11/23 10/11/23 12:19 14:32 Temperature 98.1 F 98.1 F Pulse Rate 84 72 Respiratory 18 18 Rate Blood Pressure 151/94 148/68 O2 Sat by Pulse 100 98 Oximetry Medical Decision Making - Medical Decision Making Was pt. sent in by a medical professional or institution (, PA, CLINIC ADMINISTRATOR, urgent care, hospital, or usp...) When possible be specific @ -No Did you speak to anyone other than the patient for history (EMS, parent, family, police, friend...)? What history was obtained from this source @ -No Did you review nursing and triage notes (agree or disagree)? Why? @ -I reviewed and agree with nursing and triage notes Were old charts reviewed (outside hosp., previous admission, EMS record, old EKG, old radiological studies, urgent care reports/EKG's, usp records)? Report findings @ -No old charts were reviewed Differential Diagnosis (chest pain, altered mental status, abdominal pain women, abdominal pain men, vaginal bleeding, weakness, fever, dyspnea, syncope, headache, dizziness, GI bleed, back pain, seizure, CVA, palpatations, mental health, musculoskeletal)? @ -[Differential Back Pain: Strain, zoster, cauda equina syndrome, epidural abscess, vertebral osteomyelitis, discitis, fracture, subluxation, disc herniation, DJD, spinal stenosis, dissection, AAA, pancreatitis, peptic ulcer disease, pyelonephritis, kidney stone, this is not meant to be an all-inclusive list. EKG interpreted by me (3pts min.). @ -None X-rays interpreted by me (1pt min.). @ -[X-ray lumbar spine showed mild degenerative changes no acute fracture X-ray right hip with AP pelvis no acute fracture dislocation CT interpreted by me (1pt min.). @ -[None done U/S interpreted by me (1pt. min.). @ -None done What testing was considered but not performed or refused? (CT, X-rays, U/S, labs)? Why? @ -None What meds were considered but not given or refused? Why? @ -None Did you discuss the management of the patient with other professionals (professionals i.e. , PA, CLINIC ADMINISTRATOR, lab, RT, psych nurse, executive secretary social welfare, principal system software engineer, teacher, aoc director intelligence officer, caser in)? Give summary @ -No Was smoking cessation discussed for >3mins.? @ -No Was critical care preformed (if so, how long)? @ -No Were there social determinants of health that impacted care today? How? (Homelessness, low income, unemployed, alcoholism, drug addiction, transportation, low edu. Level, literacy, decrease access to med. care, alf, rehab)? @ -No Was there de-escalation of care discussed even if they declined (Discuss DNR or withdrawal of care, Hospice)? DNR status @ -No What co-morbidities impacted this encounter? (DM, HTN, Smoking, COPD, CAD, Cancer, CVA, ARF, Chemo, Hep., AIDS, mental health diagnosis, sleep apnea, morbid obesity)? @ -None Was patient admitted / discharged? Hospital course, mention meds given and route, prescriptions, significant lab abnormalities, going to OR and other p ertinent info. @ -discharge patient will follow-up with PCP, prior back surgeon that she is seen. Patient has some lumbar radiculopathy symptoms we discussed groin strain. Patient discharged in stable condition return brands discussed. Undiagnosed new problem with uncertain prognosis? @ -No Drug Therapy requiring intensive monitoring for toxicity (Heparin, Nitro, Insulin, Cardizem)? @ -No Were any procedures done? @ -No Diagnosis/symptom? @ -[groin strain, lumbar radicular pain Acute, or Chronic, or Acute on Chronic? @ -Acute Uncomplicated (without systemic symptoms) or Complicated (systemic symptoms)? @ -[uncomplicated Side effects of treatment? @ -[No Exacerbation, Progression, or Severe Exacerbation? @ -No Poses a threat to life or bodily function? How? (Chest pain, [place], [place], pneumonia, PE, COPD, DKA, ARF, appy, cholecystitis, CVA, Diverticulitis, Homicidal, Suicidal, threat to staff... and all critical care pts) @ -No Disposition Clinical Impression: Lumbar radiculopathy, acute, Groin strain Disposition: HOME SELF-CARE Condition: Stable Instructions (If sedation given, give patient instructions): Groin Strain (ED) Additional Instructions: Please return to the Emergency Department if symptoms worsen or any other concerns. Prescriptions: predniSONE 50 mg PO DAILY #5 tab Is patient prescribed a controlled substance at d/c from ED?: No Referrals: Charlie Stubbs [Primary Care Provider] - 1-2 days Time of Disposition: 14:18
[2023-10-11 14:39] VITALS: BP 148/68; PULSE 72
== END 2023-10-11 14:32 | disposition home or self-care (01) ==
LOC: EC 12:14
DX: S39.011A Strain of muscle, fascia and tendon of abdomen, initial encounter (principal); M54.16 Radiculopathy, lumbar region; E78.5 Hyperlipidemia, unspecified; K21.9 Gastro-esophageal reflux disease without esophagitis; F17.200 Nicotine dependence, unspecified, uncomplicated; E07.9 Disorder of thyroid, unspecified; J44.89 Other specified chronic obstructive pulmonary disease; F12.90 Cannabis use, unspecified, uncomplicated; Z79.890 Hormone replacement therapy; Z79.899 Other long term (current) drug therapy; Z79.51 Long term (current) use of inhaled steroids; W19.XXXA Unspecified fall, initial encounter
CPT/HCPCS: 72100; 73502; 99283

== ENCOUNTER → 2023-11-19 | Outpatient (CLI) | payer OTHER ==
--- NOTE | 2023-11-23 11:02 | MR ---
EXAMINATION TYPE: MR lumbar spine wo con DATE OF EXAM: 11/19/2023 11:22 AM CLINICAL INDICATION:Female, 63 years old with history of M51.16 IDD W/RADICULOPATHY, Lower back pain, RLE radiculopathy. COMPARISON: 11/01/2023. TECHNIQUE: Multi planar, multi sequence imaging was performed utilizing: T1-weighted, T2-weighted, a nd turbo inversion recovery imaging of the lumbar spine. IV Contrast: cc . (None if empty) FINDINGS: Alignment: The lumbar vertebral bodies have preserved heights and alignment. Cord: The conus medullaris and the distal spinal cord appear unremarkable with regards to their signa l intensity and morphology. Bones/Discs: Mild degeneration changes throughout the spine with osteophyte formation and facet joint arthropathy. Multilevel disc desiccation is present. Perineural cyst at the level of S1 on the left measuring 11 mm. T12-L1: No evidence of significant spinal canal stenosis. Facet joint arthropathy mild bilateral neur al foraminal stenosis. L1-L2: No evidence of significant spinal canal stenosis. Facet joint arthropathy mild bilateral neura l foraminal stenosis. L2-L3: No evidence of significant spinal canal stenosis. Facet joint arthropathy mild bilateral neura l foraminal stenosis. L3-L4: Disc bulge and facet joint arthropathy result in mild spinal canal and mild bilateral neural f oraminal stenosis. L4-L5: Eccentric right disc bulging with central protrusion which effaces the forming right nerve ser ies 601 image 14. Protrusion is best appreciated on 601 image 15. L5-S1: The disc is rounded posterior morphology without significant spinal canal stenosis. Facet join t arthropathy with mild bilateral neural foraminal stenosis. No significant spinal canal or neural foraminal stenosis in the remainder of the visualized levels. Other findings: None. IMPRESSION: 1. L4-L5 Eccentric right disc protrusion which effaces the forming right nerve/exiting L5-S1. 2. No significant spinal canal stenosis. 3. Mild to moderate disc degeneration with associated osteoarthritic changes.
== END | disposition home or self-care (01) ==
LOC: RADMRIMAIN 10:26
PROVIDERS: ATTEND Orthopaedic Surgery
DX: M51.16 Intervertebral disc disorders with radiculopathy, lumbar region (principal); M51.27 Other intervertebral disc displacement, lumbosacral region; M51.36 Other intervertebral disc degeneration, lumbar region
CPT/HCPCS: 72148

== ENCOUNTER → 2024-03-04 | Outpatient (CLI) | payer OTHER | END | disposition home or self-care (01) | LOC: LABPAT 09:57 | PROVIDERS: ATTEND Orthopaedic Surgery | DX: Z01.812 Encounter for preprocedural laboratory examination (principal); M43.16 Spondylolisthesis, lumbar region; M51.26 Other intervertebral disc displacement, lumbar region; Z22.322 Carrier or suspected carrier of Methicillin resistant Staphylococcus aureus | CPT/HCPCS: 86850; 86900; 86901; 87070 ==

== ENCOUNTER → 2024-03-23 | Outpatient (CLI) | payer OTHER ==
--- NOTE | 2024-03-24 09:35 | MR ---
EXAMINATION TYPE: MR thoracic spine wo con DATE OF EXAM: 03/23/2024 7:32 PM CLINICAL INDICATION:Female, 64 years old with history of M54.14 RADICULOPATHY, THORACIC REGION M48.04 spina; PHH, Pain, trouble walking, frequent falls x6 months COMPARISON: No priors. TECHNIQUE: Multi planar, multi sequence imaging was performed utilizing: T1-weighted, short-tau inver marita recovery and T2-weighted of the thoracic spine. IV Contrast: cc (none if empty) FINDINGS: Alignment: Alignment is within normal limits. Vertebral bodies have preserved heights. Spinal cord: Spinal cord is within normal limits for signal. Discs: Intervertebral disc signal is maintained. No evidence of significant spinal canal or neural fo raminal stenosis. There is no evidence of extradural defects or central spinal canal narrowing at any thoracic vertebral body level Osseous structures: No abnormal bony edema on inversion recovery sequences. Multilevel osteophyte for mation and facet joint arthropathy. Scattered disc space narrowing. Azygous fissure in the right upper lung. IMPRESSION: Mild degeneration changes of the spine without significant spinal canal neural foraminal stenosis. Sp inal cord signal is maintained
== END | disposition home or self-care (01) ==
LOC: RADMRIMAIN 18:38
PROVIDERS: ATTEND Orthopaedic Surgery
DX: M51.14 Intervertebral disc disorders with radiculopathy, thoracic region (principal); M48.04 Spinal stenosis, thoracic region
CPT/HCPCS: 72146

== ENCOUNTER 2024-03-24 15:10 | Emergency (ER) | payer OTHER ==
[2024-03-24 15:29] VITALS: RESP 18; TEMP 98
--- NOTE | 2024-03-24 16:00 | ED ---
Weakness HPI - General Source: patient, RN notes reviewed Mode of arrival: wheelchair Limitations: no limitations - History of Present Illness MD Complaint: generalized weakness <Jenna Farris - Last Filed: 03/29/24 16:26> - General Source: patient, RN notes reviewed Mode of arrival: wheelchair Limitations: no limitations - History of Present Illness MD Complaint: generalized weakness -: days(s) Location: generalized Severity: moderate Severity scale (1-10): 6 Improves with: none Worsens with: none Context: history of similar Associated Symptoms: denies other symptoms <Marshall Rivera - Last Filed: 04/01/24 01:53> - General Chief complaint: Weakness Stated complaint: Fall-sent by PCP Time Seen by Provider: 03/24/24 15:58 - History of Present Illness Initial comments: Quick Note: This is a 64-year-old female who presents to the emergency department for weakness. Patient has been having frequent falls recently as a result of worsening back pain. This started out as problems with her lower back and she is now having problems with her mid back as well. This is causing her to feel weak and fall frequently. Pain is worse on the right side and radiates down the leg. Denies any loss of bowel/bladder control or saddle anesthesia. States that Dr. Hayes's office sent her into the emergency department for further evaluation of her symptoms. (Jenna Farris) This is a 64-year-old female for ER for multiple falls and back pain weakness generalized bodyaches and pains with recent falls (Marshall Rivera) - Related Data Home Medications Medication Instructions Recorded Confirmed Albuterol Nebulized [Ventolin 2.5 mg INHALATION Q6H PRN 08/08/23 08/13/23 Nebulized] Albuterol Sulfate [Proair 1 puff INHALATION Q6H PRN 08/08/23 08/13/23 Digihaler] Atorvastatin [Lipitor] 40 mg PO DAILY 08/08/23 08/13/23 Dicyclomine HCl 10 mg PO AC-TID 08/08/23 08/13/23 Fluticasone Nasal [place] [Flonase 1 spray EA NOSTRIL DAILY 08/08/23 08/13/23 Nasal [place]] Fluticasone/Umeclidin/Vilanter 1 puff INHALATION DAILY 08/08/23 08/13/23 [Trelegy Ellipta 200-62.5-25] Gabapentin [Neurontin] 300 mg PO BID 08/08/23 08/13/23 Levocetirizine Dihydrochloride 5 mg PO DAILY 08/08/23 08/13/23 [Xyzal] Levothyroxine Sodium [Synthroid] 88 mcg PO DAILY 08/08/23 08/13/23 Naproxen [Naprosyn] 500 mg PO BID 08/08/23 08/13/23 Omeprazole [PriLOSEC] 20 mg PO AC-BRKFST 08/08/23 08/13/23 oxyBUTYnin chloride [oxyBUTYnin 5 mg PO DAILY 08/08/23 08/13/23 chloride ER] Previous Rx's Medication Instructions Recorded Cyclobenzaprine [Flexeril] 5 mg PO TID PRN #30 tablet 08/15/23 Gabapentin 300 mg PO BID #60 cap 08/15/23 HYDROcodone/APAP 10-325MG [[place] 1 tab PO Q4-6H PRN #42 tab 08/15/23 10-325] Ondansetron Odt [Zofran Odt] 4 mg PO Q8HR PRN #20 tab 08/15/23 Sennosides/Docusate Sodium [Senna 1 each PO DAILY PRN #20 tablet 08/15/23 Plus 8.6-50 mg Tablet] cefaDROXiL [Duricef] 500 mg PO Q12HR #10 cap 08/15/23 predniSONE 50 mg PO DAILY #5 tab 10/11/23 Allergies Allergy/AdvReac Type Severity Reaction Status Date / Time No Known Allergies Allergy Verified 03/24/24 15:29 Review of Systems ROS Other: All systems not noted in ROS Statement are negative. <Jenna Farris - Last Filed: 03/29/24 16:26> ROS Other: All systems not noted in ROS Statement are negative. <Marshall Rivera - Last Filed: 04/01/24 01:53> ROS Statement: Those systems with pertinent positive or pertinent negative responses have been documented in the HPI. Past Medical History Past Medical History: Asthma, Cancer, COPD, GERD/Reflux, Hyperlipidemia, Osteoarthritis (OA), Rheumatoid Arthritis (RA), Thyroid Disorder Additional Past Medical History / Comment(s): hx. thyroid cancer-had surg., osteoporosis History of Any Multi-Drug Resistant Organisms: None Reported Past Surgical History: Appendectomy, Cholecystectomy, Hysterectomy Additional Past Surgical History / Comment(s): total thyroidectomy, left mastoid surg., myringotomy & tubes Past Anesthesia/Blood Transfusion Reactions: No Reported Reaction Past Psychological History: No Psychological Hx Reported Smoking Status: Current every day smoker Past Alcohol Use History: Occasional Past Drug Use History: Marijuana - Past Family History Mother Family Medical History: No Reported History Sister(s) Family Medical History: Pulmonary Embolus Additional Family Medical History / Comment(s): w/Covid <Jenna Farris - Last Filed: 03/29/24 16:26> General Exam Limitations: no limitations <Jenna Farris - Last Filed: 03/29/24 16:26> General appearance: alert, in no apparent distress Head exam: Present: atraumatic, normocephalic, normal inspection Eye exam: Present: normal appearance, PERRL, EOMI. Absent: scleral icterus, conjunctival injection, periorbital swelling ENT exam: Present: normal exam, mucous membranes moist Neck exam: Present: normal inspection. Absent: tenderness, meningismus, lymphadenopathy Respiratory exam: Present: normal lung sounds bilaterally. Absent: respiratory distress, wheezes, rales, rhonchi, stridor Cardiovascular Exam: Present: regular rate, normal rhythm, normal heart sounds. Absent: systolic murmur, diastolic murmur, rubs, gallop, clicks GI/Abdominal exam: Present: soft, normal bowel sounds. Absent: distended, tenderness, guarding, rebound, rigid Extremities exam: Present: normal inspection, full ROM, normal capillary refill. Absent: tenderness, pedal edema, joint swelling, calf tenderness Back exam: Present: normal inspection Neurological exam: Present: alert, oriented X3, CN II-XII intact Psychiatric exam: Present: normal affect, normal mood Skin exam: Present: warm, dry, intact, normal color. Absent: rash <Marshall Rivera - Last Filed: 04/01/24 01:53> - General Exam Comments Initial Comments: Visual Physical Exam Vital signs reviewed General: Well-appearing, nontoxic, no acute distress. Head: Normocephalic, atraumatic Eyes: PERRLA, EOMI ENT: Airway patent Chest: Nonlabored breathing Skin: No visual rash, normal skin tone Neuro: Alert and oriented 3 Musculoskeletal: No gross abnormalities (Jenna Farris) Course <Marshall Rivera - Last Filed: 04/01/24 01:53> Vital Signs 03/24/24 03/24/24 03/24/24 15:25 20:22 22:04 Temperature 98.0 F Pulse Rate 109 H 79 84 Respiratory 18 18 18 Rate Blood Pressure 107/79 140/102 130/84 O2 Sat by Pulse 98 99 95 Oximetry - Reevaluation(s) Reevaluation #1: 03/29/24 Medical records reviewed (Marshall Rivera) Reevaluation #2: 03/29/24 Patient symptoms are unchanged (Marshall Rivera) Reevaluation #3: 03/29/24 Patient informed of results and questions answered (Marshall Rivera) Reevaluation #4: 04/01/24 01:52 Was pt. sent in by a medical professional or institution (, PA, FERRY ENGINEER, urgent care, hospital, or senior care...) When possible be specific @ -no Did you speak to anyone other than the patient for history (EMS, parent, family, police, friend...)? What history was obtained from this source @ -no Did you review nursing and triage notes (agree or disagree)? Why? @ -agree Are old charts reviewed (outside hosp., previous admission, EMS record, old EKG, old radiological studies, urgent care reports/EKG's, senior care records)? Report findings @ -yes Differential Diagnosis (chest pain, altered mental status, abdominal pain women, abdominal pain men, vaginal bleeding, weakness, fever, dyspnea, syncope, headache, dizziness, GI bleed, back pain, seizure, CVA, palpatations, mental health, musculoskeletal)? @ -prior EKG interpreted by me (3pts min.). @ -yes X-rays interpreted by me (1pt min.). @ -yes negative for acute disease CT interpreted by me (1pt min.). @ -no U/S interpreted by me (1pt. min.). @ -no What testing was considered but not performed or refused? (CT, X-rays, U/S, labs)? Why? @ -none What meds were considered but not given or refused? Why? @ -none Did you discuss the management of the patient with other professionals (professionals i.e. , PA, FERRY ENGINEER, lab, RT, psych nurse, social media designer, ammonium nitrate neutralizer, teacher, aviation safety officer, rn case manager)? Give summary @ -no Was smoking cessation discussed for >3mins.? @ -no Was critical care preformed (if so, how long)? @ -no Were there social determinants of health that impacted care today? How? ( Homelessness, low income, unemployed, alcoholism, drug addiction, transportation, low edu. Level, literacy, decrease access to med. care, group home, rehab)? @ -none Was there de-escalation of care discussed even if they declined (Discuss DNR or withdrawal of care, Hospice)? DNR status @ -no What co-morbidities impacted this encounter? (DM, HTN, Smoking, COPD, CAD, Cancer, CVA, ARF, Chemo, Hep., AIDS, mental health diagnosis, sleep apnea, morbid obesity)? @ -none Was patient admitted / discharged? Hospital course, mention meds given and route, prescriptions, significant lab abnormalities, going to OR and other pertinent info. @ - Undiagnosed new problem with uncertain prognosis? @ -no Drug Therapy requiring intensive monitoring for toxicity (Heparin, Nitro, Insulin, Cardizem)? @ -no Were any procedures done? @ -no Diagnosis/symptom? @ - Acute, or Chronic, or Acute on Chronic? @ -Acute Uncomplicated (without systemic symptoms) or Complicated (systemic symptoms)? @ -Complicated Side effects of treatment? @ -no Exacerbation, Progression, or Severe Exacerbation? @ -exacerbation Poses a threat to life or bodily function? How? (Chest pain, USA, CT, pneumonia, PE, COPD, DKA, ARF, appy, cholecystitis, CVA, Diverticulitis, Homicidal, Suicidal, threat to staff... and all critical care pts) @ -yes (Marshall Rivera) Reevaluation #5: Differential Weakness: Hypoglycemia, shock, sepsis, hyponatremia, anemia, infection, CT, ETOH, adverse medicine reaction, overdose, stroke, this is not meant to be an all-inclusive list. (aMrshall Rivera) Medical Decision Making - Lab Data Result diagrams: 03/24/24 16:43 03/24/24 16:43 <Jenna Farris - Last Filed: 03/29/24 16:26> - Lab Data Result diagrams: 03/24/24 16:43 03/24/24 16:43 - EKG Data -: EKG Interpreted by Me - Radiology Data Radiology results: report reviewed (CT chest abdomen pelvis negative for acute disease), image reviewed <Marshall Rivera - Last Filed: 04/01/24 01:53> - Medical Decision Making I performed the QuickNote portion of this chart. Signed Jenna Farris PA-C. (Jenna Farris) 64 female to ER for evaluation of weakness with no acute findings here in the ER patient can be discharged home (Marshall Rivera) - Lab Data Lab Results 03/24/24 03/24/24 03/24/24 Range/Units 16:43 16:43 16:43 WBC 10.4 (3.8-10.6) k/uL RBC 4.91 (3.80-5.40) m/uL Hgb 13.5 (11.4-16.0) gm/dL Hct 43.9 (34.0-46.0) % MCV 89.4 (80.0-100.0) fL MCH 27.5 (25.0-35.0) pg MCHC 30.7 L (31.0-37.0) g/dL RDW 15.3 (11.5-15.5) % Plt Count 333 (150-450) k/uL MPV 8.7 Neutrophils % 67 % Lymphocytes % 25 % Monocytes % 5 % Eosinophils % 1 % Basophils % 1 % Neutrophils # 6.9 (1.3-7.7) k/uL Lymphocytes # 2.6 (1.0-4.8) k/uL Monocytes # 0.5 (0-1.0) k/uL Eosinophils # 0.1 (0-0.7) k/uL Basophils # 0.1 (0-0.2) k/uL Hypochromasia Slight PT 10.3 (10.0-12.5) sec INR 0.9 (<1.2) APTT 25.3 (22.0-30.0) sec Sodium 141 (137-145) mmol/L Potassium 5.2 H (3.5-5.1) mmol/L Chloride 107 (98-107) mmol/L Carbon Dioxide 26 (22-30) mmol/L Anion Gap 8 mmol/L BUN 8 (7-17) mg/dL Creatinine 0.52 (0.52-1.04) mg/dL Est GFR (CKD-EPI)AfAm >90 (>60 ml/min/1.73 sqM) Est GFR (CKD-EPI)NonAf >90 (>60 ml/min/1.73 sqM) Glucose 93 (74-99) mg/dL Plasma Lactic Acid Mohan (0.7-2.0) mmol/L Calcium 9.6 (8.4-10.2) mg/dL Magnesium 2.0 (1.6-2.3) mg/dL Total Bilirubin 0.5 (0.2-1.3) mg/dL AST 29 (14-36) U/L ALT 15 (4-34) U/L Alkaline Phosphatase 127 H (38-126) U/L Troponin I (0.000-0.034) ng/mL Total Protein 7.5 (6.3-8.2) g/dL Albumin 4.4 (3.5-5.0) g/dL 03/24/24 03/24/24 Range/Units 16:43 16:43 WBC (3.8-10.6) k/uL RBC (3.80-5.40) m/uL Hgb (11.4-16.0) gm/dL Hct (34.0-46.0) % MCV (80.0-100.0) fL MCH (25.0-35.0) pg MCHC (31.0-37.0) g/dL RDW (11.5-15.5) % Plt Count (150-450) k/uL MPV Neutrophils % % Lymphocytes % % Monocytes % % Eosinophils % % Basophils % % Neutrophils # (1.3-7.7) k/uL Lymphocytes # (1.0-4.8) k/uL Monocytes # (0-1.0) k/uL Eosinophils # (0-0.7) k/uL Basophils # (0-0.2) k/uL Hypochromasia PT (10.0-12.5) sec INR (<1.2) APTT (22.0-30.0) sec Sodium (137-145) mmol/L Potassium (3.5-5.1) mmol/L Chloride (98-107) mmol/L Carbon Dioxide (22-30) mmol/L Anion Gap mmol/L BUN (7-17) mg/dL Creatinine (0.52-1.04) mg/dL Est GFR (CKD-EPI)AfAm (>60 ml/min/1.73 sqM) Est GFR (CKD-EPI)NonAf (>60 ml/min/1.73 sqM) Glucose (74-99) mg/dL Plasma Lactic Acid Mohan 0.9 (0.7-2.0) mmol/L Calcium (8.4-10.2) mg/dL Magnesium (1.6-2.3) mg/dL Total Bilirubin (0.2-1.3) mg/dL AST (14-36) U/L ALT (4-34) U/L Alkaline Phosphatase (38-126) U/L Troponin I <0.012 (0.000-0.034) ng/mL Total Protein (6.3-8.2) g/dL Albumin (3.5-5.0) g/dL Disposition Is patient prescribed a controlled substance at d/c from ED?: No <Jenna Farris - Last Filed: 03/29/24 16:26> <Marshall Rivera - Last Filed: 04/01/24 01:53> Clinical Impression: Weakness, Frequent falls, Back pain Disposition: HOME SELF-CARE Condition: Good Referrals: Yanni Liu DO [Primary Care Provider] - 1-2 days
[2024-03-24 16:57] LABS: Basophils # (A) 0.1 k/uL (0-0.2); Basophils % (A) 1 %; Eosinophils # (A) 0.1 k/uL (0-0.7); Eosinophils % (A) 1 %; HCT 43.9 % (34.0-46.0); HGB 13.5 gm/dL (11.4-16.0); Hypochromasia Slight; Lymphocytes # (A) 2.6 k/uL (1.0-4.8); Lymphocytes % (A) 25 %; MCH 27.5 pg (25.0-35.0); MCHC 30.7 g/dL (31.0-37.0); MCV 89.4 fL (80.0-100.0); Mean Platelet Volume 8.7; Monocytes # (A) 0.5 k/uL (0-1.0); Monocytes % (A) 5 %; Neutrophils # (A) 6.9 k/uL (1.3-7.7); Neutrophils % (A) 67 %; Platelet Count 333 k/uL (150-450); RBC 4.91 m/uL (3.80-5.40); RDW 15.3 % (11.5-15.5); WBC 10.4 k/uL (3.8-10.6)
[2024-03-24 17:08] LABS: ALT 15 U/L (4-34); AST 29 U/L (14-36); African American GFR (CKD) >90 (>60 ml/min/1.73 sqM); Albumin 4.4 g/dL (3.5-5.0); Alkaline Phosphatase 127 U/L (38-126); Anion Gap 8 mmol/L; Blood Urea Nitrogen 8 mg/dL (7-17); Calcium 9.6 mg/dL (8.4-10.2); Carbon Dioxide 26 mmol/L (22-30); Chloride 107 mmol/L (98-107); Glucose 93 mg/dL (74-99); Non-African American GFR(CKD) >90 (>60 ml/min/1.73 sqM); Potassium 5.2 mmol/L (3.5-5.1); Sodium 141 mmol/L (137-145); Total Bilirubin 0.5 mg/dL (0.2-1.3); Total Protein 7.5 g/dL (6.3-8.2)
[2024-03-24 17:12] LABS: INR 0.9 (<1.2); Partial Thromboplastin Time 25.3 sec (22.0-30.0); Prothrombin Time 10.3 sec (10.0-12.5)
[2024-03-24] MEDS: SODIUM CHLORIDE 0.9% 1,000 ML IV STA (20:37)
[2024-03-24] MEDS: DEXAMETHASONE SOD PHOSPHATE 10 MG/ML 1 ML VIAL IVP STA (20:37)
--- NOTE | 2024-03-24 20:37 | CT ---
EXAMINATION TYPE: CT ChestAbdPelvis w con CT DLP: 543.6 mGycm, Automated exposure control for dose reduction was used. DATE OF EXAM: 03/24/2024 8:26 PM COMPARISON: 11/05/2023 CLINICAL INDICATION:Female, 64 years old with history of pain; LOCATED [facility]IN [facility], Pt is a patient of DR Hayes and sent in by office for worsening weakness and falls. Technique: CT ChestAbdPelvis w con; Multiple axial images were obtained. Two-dimensional coronal and sagittal reconstructions were obtained. Contrast used:100 ml mL of Isovue 300 with IV Contrast, Oral contrast used: without Oral Contrast Findings: CHEST: LUNGS/ PLEURA: No focal consolidation, pneumothorax or pleural effusion. AIRWAY: Patent and unremarkable. HEART: Size within normal limits. MEDIASTINUM: No gross evidence of adenopathy. VASCULATURE: No aortic aneurysm. MUSCULOSKELETAL: No acute osseous abnormalities. No evidence of significant spinal canal or neural fo raminal stenosis in the thoracic spine. SOFT TISSUES/LYMPH NODES: Unremarkable. LOWER NECK: No significant findings. ABDOMEN: ABDOMEN LIVER: Unremarkable GALLBLADDER AND BILE DUCTS: Unremarkable. PANCREAS: Unremarkable. SPLEEN: Unremarkable. ADRENAL GLANDS: Unremarkable. KIDNEYS AND URETERS: No evidence of hydronephrosis or renal calculus. The ureters are unremarkable. PELVIS BLADDER: Unremarkable REPRODUCTIVE: The uterus is surgically absent. ABDOMEN & PELVIS STOMACH AND BOWEL: No evidence of bowel obstruction. PERITONEUM: No evidence of pneumoperitoneum or free fluid. Azygous fissure in the right upper lobe. Mild paraseptal and centrilobular emphysema changes. VASCULATURE: No evidence of aortic aneurysm. Disc bulge/herniation L4-L5 with at least moderate spina l canal stenosis. There is facet arthropathy with at least mild to moderate neural foraminal stenosis . Migration of disc material superiorly and/or sequestrum suggested series 203 image 81. MUSCULOSKELETAL: No acute osseous abnormalities LYMPH NODES: No gross evidence for lymphadenopathy. SOFT TISSUE/ABDOMINAL WALL: Unremarkable IMPRESSION: 1. Similar Disc bulge/herniation L4-L5 with at least moderate spinal canal stenosis. There is facet arthropathy with at least mild to moderate neural foraminal stenosis bilaterally at this level. Migra tion of disc material superiorly and/or sequestrum suggested series 203 image 81. Consider further ev aluation with MRI. 2. No evidence for acute abdominal process. 3. Mild emphysema changes.
[2024-03-24] MEDS: KETOROLAC 15 MG/ML 1 ML VIAL IVP STA (20:38)
[2024-03-24] MEDS: HYDROmorphone 1 MG/ML 1 ML SYRINGE IVP STA (20:39)
[2024-03-24 22:05] VITALS: BP 130/84; PULSE 84
== END 2024-03-24 22:08 | disposition home or self-care (01) ==
LOC: EC 15:10
DX: R53.1 Weakness (principal); M47.819 Spondylosis without myelopathy or radiculopathy, site unspecified; M48.061 Spinal stenosis, lumbar region without neurogenic claudication; M51.26 Other intervertebral disc displacement, lumbar region; M51.36 Other intervertebral disc degeneration, lumbar region; F17.200 Nicotine dependence, unspecified, uncomplicated; W19.XXXA Unspecified fall, initial encounter
CPT/HCPCS: 36415; 71260; 74177; 80053; 83605; 83735; 84484; 85025; 85610; 85730; 93005; 96361; 96374; 96375; 99285

== ENCOUNTER → 2024-04-03 | Outpatient (CLI) | payer OTHER ==
--- NOTE | 2024-04-03 14:29 | CTL ---
EXAMINATION TYPE: CT Low Dose Lung DATE OF EXAM ORDERED: 04/03/2024 HISTORY: Nicotine dependence, current smoker, 40 pack-year history. Lung cancer screening CT DLP: 51.[address] CTDI: 1.5 mGy Automated exposure control for dose reduction was used. SCREENING VISIT: Follow-up COMPARISON: CT chest abdomen and pelvis 03/24/2024, CT Low Dose Lung 03/20/2023 TECHNIQUE: Low dose computed tomography scan was performed through the chest at 1 mm thick sections a nd reconstructed images in multiple planes at 1 mm and [address] DIAGNOSTIC QUALITY: Satisfactory FINDINGS: Nodules: Stable left upper lobe 3.3 mm solid pulmonary nodule (series 4, image 82). Stable left upper lobe 2.6 mm solid pulmonary nodule (series 4, image 98). Stable medial right lower lobe 3.9 mm solid pulmonary nodule (series 4, image 180). Stable right lower lobe 2.3 mm solid pulmonary nodule (series 4, image 137). Stable medial right lower lobe 2.4 mm solid pulmonary nodule (series 4, image 96). No new or enlarging pulmonary nodules. LUNGS: COPD: Severity: Mild paraseptal emphysematous changes. Fibrosis: Severity: None Lymph nodes: None Other findings: Incidental azygous fissure. RIGHT PLEURAL SPACE: Effusion: None Calcification: None Thickening: Apical Pneumothorax: None LEFT PLEURAL SPACE: Effusion: None Calcification: None Thickening: Apical Pneumothorax: None HEART: Heart Size: Normal Coronary Calcification: None Pericardial Effusion: None OTHER FINDINGS: Upper abdomen: None Bony thorax: No acute process. Partial visualization of anterior cervical fusion hardware. Supraclavicular region: None Other: None IMPRESSION: 1. Stable scattered pulmonary nodules dating back to 03/20/2023 CT. Largest measures up to 3.9 mm. No new or enlarging pulmonary nodules. 2. Mild COPD changes. CT LUNG RAD AND CT CHEST RECOMMENDATION: Lung-Rad 2 Benign Appearance or Behavior: Continue annual sc reening with LDCT in 12 months. S Modifier (other clinically significant findings): None
== END | disposition home or self-care (01) ==
LOC: RADCTMAIN 11:28
PROVIDERS: ATTEND Internal Medicine Critical Care Medicine
DX: Z12.2 Encounter for screening for malignant neoplasm of respiratory organs (principal); F17.210 Nicotine dependence, cigarettes, uncomplicated; J44.9 Chronic obstructive pulmonary disease, unspecified; R91.8 Other nonspecific abnormal finding of lung field
CPT/HCPCS: 71271

== ENCOUNTER → 2024-05-27 | Outpatient (CLI) | payer OTHER ==
[2024-05-27 15:33] LABS: ALT 14 U/L (8-44); AST 16 U/L (13-35); Albumin 4.3 g/dL (3.8-4.9); Albumin/Globulin Ratio 1.48 Ratio (1.60-3.17); Alkaline Phosphatase 162 U/L (41-126); BUN/Creat Ratio 14.14 Ratio (12.00-20.00); Blood Urea Nitrogen 9.9 mg/dL (9.0-27.0); Calcium 9.7 mg/dL (8.7-10.3); Carbon Dioxide 27.4 mmol/L (21.6-31.8); Chloride 105 mmol/L (96-109); Globulin 2.9 g/dL (1.6-3.3); Glucose 92 mg/dL (70-110); Potassium 5.1 mmol/L (3.5-5.5); Sodium 141 mmol/L (135-145); Total Bilirubin 0.3 mg/dL (0.3-1.2); Total Protein 7.2 g/dL (6.2-8.2)
[2024-05-27 15:44] LABS: HCT 46.1 % (37.2-46.3); HGB 14.1 g/dL (12.0-15.0); MCH 26.9 pg (27.0-32.0); MCHC 30.6 g/dL (32.0-37.0); MCV 87.8 FL (80.0-97.0); Mean Platelet Volume 10.9 FL (9.5-12.2); NRBC Per 100 WBC 0 X 10*3/uL (0.00-0.01); Platelet Count 369 X 10*3/uL (140-440); RBC 5.25 X 10*6/uL (4.10-5.20); RDW 14.6 % (11.5-14.5); WBC 10.14 X 10*3/uL (4.50-10.00)
[2024-05-27 16:08] LABS: INR 0.96 sec (0.93-1.11); Prothrombin Time 10.4 sec (9.9-11.9)
== END | disposition home or self-care (01) ==
LOC: LABPAT 10:44
PROVIDERS: ATTEND Orthopaedic Surgery
DX: Z01.812 Encounter for preprocedural laboratory examination (principal); Z22.322 Carrier or suspected carrier of Methicillin resistant Staphylococcus aureus; M48.061 Spinal stenosis, lumbar region without neurogenic claudication; M47.817 Spondylosis without myelopathy or radiculopathy, lumbosacral region
CPT/HCPCS: 80053; 85027; 85610; 86850; 86900; 86901; 87070

== ENCOUNTER 2024-05-29 05:32 | Day surgery (SDC) | payer OTHER ==
[~2024-05-29 05:32] MED LIST changes: -ACETAMINOPHEN TAB 500 MG TAB PO PRN; -ONDANSETRON 4 MG/2 ML VIAL IVP PRN
[2024-05-29] MEDS: IV FLUID CONTINUATION 1,000 ML IV ONE ×3 (06:22→07:11)
[2024-05-29] MEDS: ACETAMINOPHEN TAB 500 MG TAB PO PRN (06:49)
[2024-05-29] MEDS: ONDANSETRON 4 MG/2 ML VIAL IVP PRN ×2 (06:49→15:40)
[2024-05-29] MEDS ORDERED: MIDAZOLAM 2 MG/2 ML VIAL IV PRN (07:00)
--- NOTE | 2024-05-29 07:01 | P.HPOR ---
History of Present Illness H&P Date: 05/29/24 [facility] HISTORY AND PHYSICAL Age: 64 year Height: 5'5" Weight: 126 lbs BMI: 20.97 kg/m2 Occupation: Disabled VAS: 6 IMPRESSION: It was my pleasure to have seen and examinedTracy.I reviewed the patient's clinical syndrome, physical findings, and imaging studies during the appointment today. It is my impression that the patient has a diagnosis of. 1. Grade I spondylolisthesis of L4 on L5 2. L4-5 herniated nucleus pulposus with stenosis 3. Right lower extremity radiculopathy Spine Surgery Risk Review Ms. Cloud is presenting for evaluation of low back pain. It was my pleasure to have seen and examined Ms. Cloud. In our visit today we have had a chance to go over subjective complaints, physical examination findings and treatments including the natural course history without intervention and various interventional options. The patient's imaging demonstrates: As above L4-5 HNP with grade I spondylolisthesis, mobile with b/l foraminal and central stenosis that is moderate. There is facet arthropathy, hypertropy, ligamental hypertrophy and bogginess contributing to the stenosis as well as arthropathy. Disc height collapse at L4-5 and L5-S1 noted with spondylosis L4-S1 noted. On physical exam, Ms. Cloud demonstrates: A dull, ache-like pain throughout the low back that occurs on a constant basis when at rest. She states her low back pain radiates down into the bilateral lower extremities wit a sharp, shooting quality. Her lower extremity pain is associated with numbness and tingling bilaterally. She notes intermittent groin pain. She states that all activity causes worsening symptoms. She notes her low back and leg pain have progressively worsened over the last 1 month. SHe states her pain has been ongoing for te last 2 months after lifting her spouse after he had fallen onto the ground at home. The patient denies experiencing any significant lumbar discomfrt before the time of this incident. I have explained to the patient that as their condition progresses it will cause further neurological deficits and eventual paralysis. Based on the patients imaging, physical exam, and the rapid progression and disabling nature of their symptoms, at this time I recommend surgery in the form of a: L4-5 MINIMALLY INVASIVE POSTEROLATERAL AND INTERBODY FUSION. I discussed the risk and benefits of this procedure at length with Ms. Cloud. The patient agreed to considered pursuing the procedure abovementioned. Prior to surgery, she should follow up with her PCP (Cardio, ID, IM etc) for clearance. Questions were invited and answered, and the patient wishes to proceed as outlined below. Currently, I am recommendin.L4-5 MINIMALLY INVASIVE POSTEROLATERAL AND INTERBODY FUSION 2.Review of surgical risks and benefits as well as an educational packet on the proposed surgical procedure. Risks: All surgical procedures come with inherent risks, including those related to positioning, anesthesia, intraoperative findings, and postoperative complications. It is important to understand that surgery does not come with any guarantee of a successful outcome as complications and adverse events are always possible. The patient was given a handout in office today discussing the surgical procedure and risks associated with the intervention, both of which were discussed with the patient. These risks include but are not limited to the following: * Experiencing same, different or even worse symptoms in back, neck, arms, or legs compared to before surgery. Requiring further surgery or other forms of treatment presently or at some time in the future at same or other levels of the intended spine surgery. On an extreme but fortunately relatively rare basis severe complication such as blindness, stroke, heart attack, temporary and/or permanent nerve injury, paralysis, coma, or may occur, sometimes without known explanation. Surgical complications may include but are not limited to risk of infection, fl uid accumulation in the surgical dissection site, including a seroma or hematoma, that requires additional surgery, wound drainage, bleeding, new numbness or weakness, vision changes/loss, spinal fluid leakage, non-healing and/or infected incision, headaches, difficulty or inability to swallow, hoarseness, hemopneumothorax, pneumothorax, impotence, retrograde ejaculation, vaginal dryness; injury to nerves, spinal cord, blood vessels, lymphatics or other vital organs (i.e., bowel injury, injury to the great vessels); heterotopic bone formation; complications related to the hardware such as scre ws, rods, cages including misplaced hardware, device failure, instrumentation at the wrong spine level, hardware fracture/breakage, or hardware loosening; vertebral failure of the spinal column above or below the newly placed hardware; retained surgical instrumentations or devices and the need for further surgery. * Medical risks of the planned spine surgery include but are not limited to generalized Infections to the whole body or local areas outside of the surgical site (sepsis), heart attack, bleeding, anaphylaxis, meningitis, seizure, epilepsy, hearing loss, burn brink, laceration of the head or other areas of the body, bruising, hypersensitivity of the skin, bladder over distension; allergic reaction; shoulder injury related to positioning; fat, blood and air clots to other areas of the body like heart, lungs, brain; failure of internal organs such as lungs, kidneys, liver and excessive bleeding. If blood transfusions are necessary, note that transfusions may cause intolerance reactions such as anaphylaxis or other complex reactions. Despite best efforts, the results of spine surgery might not heal in terms of bone, soft tissues such as skin, fascia, ligaments, and joints. Additionally, in order to achieve best possible results, spine surgery may be carried out beyond the initially planned levels and involve decompression, fusion including insertion of hardware at levels other than the original intended area of surgical interest change some portions of the procedure in order to ensure the best possible outcomes. With spine surgery and spinal fusion, there are different off label uses of instrumentation (devices, implants and hardware) as well as biological substances (bone morphogenic proteins, demineralized bone matrix) as well as using extra bone from allograft sources (i.e. cadaver bone) or autograft (iliac crest bone, ribs, or the spine itself). The patient has been given information about these practices and their inherent risks and benefits. [facility] is an educational center that serves as a training facility for neurosurgical and orthopedic SOLAR PROCESS ENGINEER and Nursing students. Physician assistants are medically trained surgical providers who function in the outpatient, inpatient, and operating room setting under the direct supervision of the attending surgeon. [facility] has multiple operating rooms with single and overlapping rooms running daily. They currently function under the required guidelines as produced by the [facility] with regards to the overlapping rooms and will continue to comply with changes to this policy as they occur. The requirements include and are complied with as follows: (1) the critical portions of the overlapping rooms will not occur at the same time, (2) the attending physician will be physically present during the critical portions of the procedure and immediately available during the entire case, and (3) a back-up attending is designated should the primary attending not be immediately available. The patient has had a chance to review all the listed information, has been given print outs detailing this information, and has had all his/her questions answered to their satisfaction. It was my pleasure to have seen and examined Ms. Cloud. In our visit today we have had a chance to go over my understanding of our patient's current condition, the natural course history without intervention and various interventional options. Questions were invited and answered, and the patient wishes to proceed as outlined above. I have seen and examined the patient for 25 minutes and we have spent more than 50% of the time in repeat and detailed counseling about the patient's condition, its natural course history with out and as much as can be predicted with surgery and re-review of various surgical treatment options. In conclusion, Ms. Cloud requested we proceed with the above suggested surgery and are willing to accept risks and limitations of the suggested surgery as nature of the disease process and our best attempts at treatment for the condition. Thank you again for allowing us to be part of your patient's care. Please don't hesitate to contact me if you have any further questions. FOLLOW UP: Post Procedure PATIENT EDUCATION: Medications Reviewed: YES In our visit today Ms. Cloud and I have had a chance to go over my understandi ng of the patient's current condition, the natural course history without intervention and various interventional options. Questions were invited and answered, and the patient wishes to proceed as outlined above. I will be sure to keep you updated after Ms. Cloud returns here for further follow-up. Thank you again for your referral. Please do not hesitate to contact me if you have any further questions. Signed and authenticated by: Srikanth [facility] [address] [place] [id number] This message is confidential, intended only for the named recipient(s) and may contain information that is privileged or exempt from disclosure under applicable law. If you are not the intended recipient(s), you are notified that the dissemination, distribution or copying of this information is strictly prohibited. If you received this message in error, please notify the sender then delete this message. Past Medical History Past Medical History: Asthma, Cancer, COPD, GERD/Reflux, Hyperlipidemia, Osteoarthritis (OA), Rheumatoid Arthritis (RA), Thyroid Disorder Additional Past Medical History / Comment(s): hx. thyroid cancer-had surg., osteoporosis, chronic back pain History of Any Multi-Drug Resistant Organisms: None Reported Past Surgical History: Appendectomy, Back Surgery, Cholecystectomy, Hysterectomy Additional Past Surgical History / Comment(s): total thyroidectomy, left mastoid surg., myringotomy & tubes, anterior cervical fusion 08/31 Past Anesthesia/Blood Transfusion Reactions: Postoperative Nausea & Vomiting (PONV) Smoking Status: Current every day smoker - Past Family History Mother Family Medical History: No Reported History Sister(s) Family Medical History: Pulmonary Embolus Additional Family Medical History / Comment(s): w/Covid Medications and Allergies Home Medications Medication Instructions Recorded Confirmed Type Albuterol Nebulized [Ventolin 2.5 mg INHALATION Q6H PRN 08/08/23 05/29/24 History Nebulized] Albuterol Sulfate [Proair 1 puff INHALATION Q6H PRN 08/08/23 05/29/24 History Digihaler] Atorvastatin [Lipitor] 40 mg PO DAILY 08/08/23 05/29/24 History Dicyclomine HCl 10 mg PO AC-TID 08/08/23 05/29/24 History Fluticasone Nasal Clear [Flonase 1 spray EA NOSTRIL DAILY 08/08/23 05/29/24 History Nasal Clear] Fluticasone/Umeclidin/Vilanter 1 puff INHALATION DAILY 08/08/23 05/29/24 History [Trelegy Ellipta 200-62.5-25] Levocetirizine Dihydrochloride 5 mg PO DAILY 08/08/23 05/29/24 History [Xyzal] Levothyroxine Sodium [Synthroid] 88 mcg PO DAILY 08/08/23 05/29/24 History Naproxen [Naprosyn] 500 mg PO BID 08/08/23 05/29/24 History Omeprazole [PriLOSEC] 20 mg PO AC-BRKFST 08/08/23 05/29/24 History Cholecalciferol (Vitamin D3) 125 mcg PO DAILY 05/26/24 05/29/24 History [Vitamin D3 (125 MCG = 5,000 IU)] Gabapentin 300 mg PO TID 05/26/24 05/29/24 History Allergies Allergy/AdvReac Type Severity Reaction Status Date / Time No Known Allergies Allergy Verified 05/29/24 06:29 Physical Examination Osteopathic Statement: *. No significant issues noted on an osteopathic structural exam other than those noted in the History and Physical/Consult. Assessment and Plan (1) Spondylolisthesis at L4-L5 level Current Visit: Yes Status: Acute Code(s): M43.16 - SPONDYLOLISTHESIS, LUMBAR REGION SNOMED Code(s): 187552437625715 (2) Spondylosis of lumbar spine Current Visit: Yes Status: Acute Code(s): M47.816 - SPONDYLOSIS W/O MYELOPATHY OR RADICULOPATHY, LUMBAR REGION SNOMED Code(s): 886540226 (3) Lumbar back pain with radiculopathy affecting right lower extremity Current Visit: Yes Status: Acute Code(s): M54.16 - RADICULOPATHY, LUMBAR REGION SNOMED Code(s): 821445194 (4) Lumbar stenosis Current Visit: Yes Status: Acute Code(s): M48.061 - SPINAL STENOSIS, LUMBAR REGION WITHOUT NEUROGENIC BAUTISTA SNOMED Code(s): 88694368
[2024-05-29] MEDS: DEXAMETHASONE SOD PHOSPHATE 4 MG/ML 1 ML VIAL IVP STA (07:03)
[2024-05-29] MEDS ORDERED: GLYCOPYRROLATE 0.2 MG/ML 2 ML VIAL ONE (07:38)
[2024-05-29] MEDS ORDERED: LIDOCAINE 1% INJ 10MG/ML (20 ML MDV) ONE (07:38)
[2024-05-29] MEDS ORDERED: NEOSTIGMINE 1 MG/ML 10 ML VIAL ONE (07:38)
[2024-05-29] MEDS ORDERED: PHENYLEPHRINE-0.9% NACL SYG 1,000 MCG/10 ML SYRINGE ONE (07:38)
[2024-05-29] MEDS ORDERED: ROCURONIUM 10 MG/ML (5 ML VIAL) IV ONE (07:38)
[2024-05-29] MEDS ORDERED: KETAMINE HCL IN 0.9 % NACL 50 MG/5 ML SYRINGE ONE (07:38)
[2024-05-29] MEDS ORDERED: fentaNYL (PF) 50 MCG/ML 2 ML AMP ONE (07:38)
[2024-05-29] MEDS ORDERED: PROPOFOL 10 MG/ML 20 ML VIAL IV ONE (07:38)
[2024-05-29] MEDS ORDERED: LABETALOL 5 MG/ML VIAL MDV ONE (07:38)
[2024-05-29] MEDS ORDERED: MIDAZOLAM 2 MG/2 ML VIAL ONE (07:38)
[2024-05-29] MEDS ORDERED: HYDROmorphone (PF) 1 MG/ML ONE (07:38)
[2024-05-29] MEDS: BUPIVACAINE (PF) 0.5% 30 ML VIAL SQ ONE ×2 (08:10→09:42)
[2024-05-29] MEDS: LIDOCAINE 2%-EPI 1:100,000 20 ML VIAL SQ ONE ×2 (08:10→09:42)
[2024-05-29] MEDS: THROMBIN (BOVINE) 5,000 UNIT VIAL MISCELLANE ONE (08:32)
--- NOTE | 2024-05-29 09:53 | P.OP ---
Date of Procedure: 05/29/24 Preoperative Diagnosis: Current Active Problems Lumbar back pain with radiculopathy affecting right lower extremity (Acute) Lumbar stenosis (Acute) Spondylolisthesis at L4-L5 level (Acute) Spondylosis of lumbar spine (Acute) Postoperative Diagnosis: Current Active Problems Lumbar back pain with radiculopathy affecting right lower extremity (Acute) Lumbar stenosis (Acute) Spondylolisthesis at L4-L5 level (Acute) Spondylosis of lumbar spine (Acute) Procedure(s) Performed: L4-5 POSTEROLATERAL AND INTERBODY FUSION L4-5 SEGMENTAL INSTRUMENTATION L4-5 LAMINECTOMY, FACETECTOMY AND FORAMINOTOMY L4-5 INSERTION OF BIOMECHANICAL DEVICE, CAGE X1 USE OF [employer] NAVIGATION FOR SCREW PLACEMENT USE OF IONM ALL SCREWS TESTING > 17mA USE OF IO MICROSCOPE Implants: ELIN EVEREST RODS AND SCREWS GLOBUS SABLE CAGE 7-14MM, 10MM LONG 15 DEG ARTHROCELL, ALLOCELL, DBM, AUTOGRAFT Anesthesia: GETA Surgeon: Srikatnh Hayes Driver Messenger #1: Jose A Weber (WAS PRESENT AND ASSISTED WITH ALL ASPECTS OF THE CASE FROM POSITINO TO DRESSING PLACEMENT. ) Estimated Blood Loss (ml): 50 IV fluids (ml): 1,000 Urine output (ml): 100 Pathology: none sent Condition: stable Disposition: PACU Indications for Procedure: Ms. Cloud is presenting for evaluation of low back pain. It was my pleasure to have seen and examined Ms. Cloud. In our visit today we have had a chance to go over subjective complaints, physical examination findings and treatments including the natural course history without intervention and various interventional options. The patient's imaging demonstrates: As above L4-5 HNP with grade I spondylolisthesis, mobile with b/l foraminal and central stenosis that is moderate. There is facet arthropathy, hypertropy, ligamental hypertrophy and bogginess contributing to the stenosis as well as arthropathy. Disc height collapse at L4-5 and L5-S1 noted with spondylosis L4-S1 noted. On physical exam, Ms. Cloud demonstrates: A dull, ache-like pain throughout the low back that occurs on a constant basis when at rest. She states her low back pain radiates down into the bilateral lower extremities wit a sharp, shooting quality. Her lower extremity pain is associated with numbness and tingling bilaterally. She notes intermittent groin pain. She states that all activity causes worsening symptoms. She notes her low back and leg pain have progressively worsened over the last 1 month. SHe states her pain has been ongoing for te last 2 months after lifting her spouse after he had fallen onto the ground at home. The patient denies experiencing any significant lumbar discomfrt before the time of this incident. I have explained to the patient that as their condition progresses it will cause further neurological deficits and eventual paralysis. Based on the patients imaging, physical exam, and the rapid progression and disabling nature of their symptoms, at this time I recommend surgery in the form of a: L4-5 MINIMALLY INVASIVE POSTEROLATERAL AND INTERBODY FUSION. I discussed the risk and benefits of this procedure at length with Ms. Cloud. The patient agreed to considered pursuing the procedure abovementioned. Prior to surgery, she should follow up with her PCP (Cardio, ID, IM etc) for clearance. Questions were invited and an swered, and the patient wishes to proceed as outlined below. Currently, I am recommendin.L4-5 MINIMALLY INVASIVE POSTEROLATERAL AND INTERBODY FUSION Description of Procedure: L4-L5 MIS TLIF DISHA The patient was seen and examined in the preoperative area. All preoperative protocols were followed. Informed consent was obtained, risks and benefits of the procedure were discussed at length. Risks including bleeding infection damage to the surrounding tissue and risk of reoperation were discussed with the patient. Risk of anesthesia up to and including was discussed with the patient. These are outlined in the risk review. They were willing to accept these risks and all the risks of surgery. The patient was given a weight-based dose of antibiotics in the form of 2 g Ancef. The patient was seen and evaluated by the anesthesia team who deemed them fit for surgery. The site was marked, the patient was willing to proceed with the procedure. The patient was transferred to the operative suite by the Department of anesthesia. They were then drifted off to sleep by the department anesthesia and GETA was performed. The patient tolerated this well. Alejandro catheter was placed by nursing staff, a-traumatically. Once confirmation of lines and ventilation the patient was transferred to a prone Zander table very carefully. All bony prominences including wrists, elbows, axilla, chest, hips, and thighs, and feet were padded very well. Special attention was paid to the genitalia, and these were padded accordingly. SCDs were placed on bilateral lower extremities and were connected. Arms were well padded and placed on arm boards up and out in the 90/90 position. Once in position, again we confirmed good ventilation capabilities and that lines were running appropriately. The patients Lumbar spine was then exposed. 1010s were placed outlining the incision site. Standard alcohol was used to clean the incision site and allowed to dry. C-arm was used to needle localize the pedicles at L4-5 and bio-luz the patient and confirm level for incision which was marked with a skin marker. Ope rative briefing was performed with all teams and everyone in agreement to proceed. The patient was then prepped and draped in a normal sterile fashion. Timeout was then performed, and all parties agreed with the procedure to be performed. Skin nicks made and pins placed in the PSIS on the right for the [employer] tracker. 3D Zheim spin was then registered and confirmed to be accurate. Navigated jamshidi and drill-guide were then used to target pedicles bilaterally at L4 and L5. Once accessed, wires were placed in their void. This was repeated at L5 bilaterally. Skin incision was then made along these wires and a perfect scalpel was used over the wire to create a path and measure screw length. Screws were then placed over wires on the contralateral side. Once the screw was at the back of the body wire was removed. The screws were confirmed to be in good position on AP and lateral. We then tested screws and they all tested above 17 mA. Attention was then turned to interbody fusion at L4-5. Tubular retractor system was placed at the interspace of L4-5 using a biplanar c arm. Once in position and dilated up to 26mm tube it was locked to the bed and confirmed in good posit ion. Microscope was then brought in for visualization. Limited myomectomy was performed and laminectomy, complete facetectomy and foraminotomy performed at L4-5 using high speed sarah and Kerrison rongeur. The ligamentum was removed and the dural sac decompressed. Exiting and traversing roots visualized and decompressed. Neural elements were then protected, and disc space accessed with an osteotome. Sequential shaving then done under lateral imaging and complete discectomy performed using clarita, pituitary and curettes. Once good bleeding endplates accomplished and good height quaker with trials, a combination of autograft, allograft and synthetic placed anterior in the disc space. The cage was then selected and impacted into place under lateral imaging. The cage was then expanded restoring height, lordosis and alignment. The cage was backfilled with bone graft through a funnel. The voltmeter operator was removed and the area inspected. Good cage placement, stable cage and no injuries. Area was irrigated copiously, and meticulous hemostasis achieved. The tubular retractor was then removed under direct visualization. Screws were then selected and placed over the previously placed wires on the ipsilateral side. This was done in the fashion described above. Screws were then tested, and all tested above 20 mA. Shells were then placed on the tabs. Manjeet length was then measured, and rods selected. They were then placed through the MIS tabs, subfascial and locked into L5 bilateral and sequentially reduced into L4 for listhesis reduction. These were then locked into place with set screws and finally tightened. Manjeet holders removed and images taken showing good placement of rods, good lordosis and quaker of height. Tabs were broken off. Wounds were then copiously irrigated with NSS. Dysart used for TP decortication and mixture of MagnatOs, allograft and autograft packed posterolateral. Fascia was then closed with 0 Vircyl on a Scorpion suture passer for MIS closure. Deep subq closed with 0 Vicryl. Superficial subq closed with 2-0 Vicryl and skin with amanda. Wound edges approximated very well. Wound was then cleaned with alcohol and dried. Wounds dressed in Optifoam dressings. The patient was then transferred off the table back to their hospital bed a- traumatically. They were extubated by the department of anesthesia. They were then transferred to PACU in stable condition having tolerated the procedure with no complications.
[2024-05-29] MEDS ORDERED: MAGNESIUM HYDROXIDE 2,400 MG/30 ML CUP PO PRN (10:05)
[2024-05-29] MEDS ORDERED: HYDROcodone/APAP 5-325MG 1 EACH TAB PO PRN (10:05)
[2024-05-29] MEDS: IPRATROPIUM-ALBUTEROL 3 ML NEB INHALATION STA (10:27)
[2024-05-29] MEDS: HYDROmorphone 0.5 MG/0.5 ML SYRINGE IVP PRN ×2 (10:38→18:49)
[2024-05-29] MEDS ORDERED: ALBUTEROL NEBULIZED 2.5 MG/3 ML INHALATION PRN (11:46)
[2024-05-29] MEDS: IPRATROPIUM 0.5 MG/2.5 ML NEBU INHALATION SCH (12:19)
[2024-05-29] MEDS: LACTATED RINGERS 1,000 ML IV SCH (12:43)
--- NOTE | 2024-05-29 14:02 | CT ---
EXAMINATION TYPE: CT lumbar spine wo con DATE OF EXAM: 05/29/2024 1:46 PM COMPARISON: None HISTORY: S/P L4-L5 PLIF CT DLP: 595.6 mGycm Automated exposure control for dose reduction was used. Unenhanced CT of the lumbar spine was performed. Bone and soft tissue window settings are submitted as well as coronal and sagittal reconstructions. Findings: There is interbody and posterior metallic fusion of L4 and L5. There are skin amanda in the posterio r lumbar soft tissues indicating recent surgery The lumbar vertebral segments are normal in height and alignment. The L1-2, L2-3, L3-4 and L5-S1 disc spaces are well-maintained secondary to mild thickening of ligame ntum flavum and circumferential disc bulge, there is a mild spinal stenosis at the L3-4 level. Sacrum and SI joints are normal. There are no large lumbar disc herniations. There is no bony neural foraminal stenosis. No epidural or paraspinal fluid collections are seen. IMPRESSION: 1. Postsurgical changes of L4-5 fusion as described above. 2. The lumbar spine fracture or malalignment. 3. Mild spinal stenosis at the L3-4 level. 4. No large disc herniations. [facility], Workstation: [facility], 05/29/2024 2:00 PM
[2024-05-29] MEDS: ACETAMINOPHEN TAB 325 MG TAB PO SCH (14:03)
[2024-05-29] MEDS: GABAPENTIN 300 MG CAP PO SCH (15:40)
[2024-05-29] MEDS: SYMBICORT 80-4.5 MCG INHALER INHALATION SCH (21:04)
[2024-05-29] MEDS: HYDROcodone/APAP 10-325MG 1 EACH TAB PO PRN (22:03)
[2024-05-30] MEDS: HYDROmorphone 1 MG/ML 1 ML SYRINGE IVP PRN (09:04)
[2024-05-30 09:24] LABS: Basophils # (A) 0.02 X 10*3/uL (0.00-0.10); Basophils % (A) 0.1 %; Eosinophils # (A) 0.01 X 10*3/uL (0.04-0.35); Eosinophils % (A) 0.1 %; Lymphocytes # (A) 2.54 X 10*3/uL (0.90-5.00); Lymphocytes % (A) 18.9 %; MCH 26.7 pg (27.0-32.0); MCHC 30.6 g/dL (32.0-37.0); MCV 87.4 FL (80.0-97.0); Mean Platelet Volume 10.6 FL (9.5-12.2); Monocytes # (A) 0.83 X 10*3/uL (0.20-1.00); Monocytes % (A) 6.2 %; NRBC Per 100 WBC 0 X 10*3/uL (0.00-0.01); Neutrophils # (A) 9.98 X 10*3/uL (1.80-7.70); Neutrophils % (A) 74.3 %; Platelet Count 252 X 10*3/uL (140-440); RBC 4.12 X 10*6/uL (4.10-5.20); RDW 14.5 % (11.5-14.5); WBC 13.44 X 10*3/uL (4.50-10.00)
[2024-05-30 09:38] LABS: Blood Urea Nitrogen 7.5 mg/dL (9.0-27.0); Calcium 8.5 mg/dL (8.7-10.3); Carbon Dioxide 29.9 mmol/L (21.6-31.8); Chloride 104 mmol/L (96-109); Glucose 106 mg/dL (70-110); Potassium 4.4 mmol/L (3.5-5.5); Sodium 142 mmol/L (135-145)
--- NOTE | 2024-05-30 10:20 | P.PN ---
Subjective Progress Note Date: 05/30/24 Principal diagnosis: 1. Grade I spondylolisthesis of L4 on L5 2. L4-5 herniated nucleus pulposus with stenosis 3. Right lower extremity radiculopathy Patient seen and examined this morning. Patient is sitting up in chair at bedside. Patient does have complaint of increased lumbar pain, medications will be adjusted. Surgical incisions to the lumbar spine are clean dry and intact, no shadowing noted. Informed patient that physical therapy should be into work with her today. Continue to encourage use of incentive spirometer 10 times per hour while awake. Discussed with patient planning discharge possibly tomorrow 05/31/2024. No acute concerns at this time. Objective - Vital Signs Vital signs: Vital Signs Temp 98.3 F 05/30/24 07:49 Pulse 80 05/30/24 09:40 Resp 17 05/30/24 07:49 BP 116/72 05/30/24 07:49 Pulse Ox 92 L 05/30/24 09:27 FiO2 Intake & Output 05/29/24 05/30/24 05/30/24 18:59 06:59 18:59 Intake Total 1850 Output Total 150 Balance 1700 Weight 50.2 kg Intake: IV 1850 Output: Urine 100 Estimated Blood Loss 50 Other: # Voids 1 2 - Exam Physical Examination General: The patient is awake and alert, in no acute distress Skin: Skin is warm and dry with no obvious rashes or lesions. Surgical incisions to the lumbar spine, dressings are clean dry and intact with no shadowing noted. Eye: Pupils are equal, round and reactive to light, extra-ocular movements are intact; there is normal conjunctiva bilaterally. Neck: The neck is supple, there is no tenderness and ROM intact. Cardiovascular: There is a regular rate and rhythm. No murmur, rub or gallop is appreciated. Respiratory: Respirations are non-labored, breath sounds are equal. Gastrointestinal: Soft, non-distended, non-tender abdomen. Back: There is no tenderness to palpation in the midline, paralumbar, parathoracic or buttocks region. There is no obvious deformity . Musculoskeletal: ROM limited secondary to pain and stiffness from surgical procedure. Right: Shoulder abduction 5/5, elbow flexors 5/5, wrist dorsiflexors 5/5. finger abductor 5/5, casting operator helper 5/5, hip flexor 4/5, knee flexor 4/5, ankle dorsiflexor 4/5, ankle plantarflexion 4/5 and extensor hallucis 4/5. Left: Shoulder abduction 5/5, elbow flexors 5/5, wrist dorsiflexors 5/5. finger abductor 5/5, casting operator helper 5/5, hip flexor 4/5, knee flexor 4/5, ankle dorsiflexor 4/5, ankle plantarflexion 4/5 and extensor hallucis 4/5. Neurological: CN 2-12 intact. There are no obvious motor or sensory deficits. Movement and coordination equal and intact. Sensory exam to light touch intact C5-T1 and intact from L2-S1. Reflexes 2/4 in bilateral upper and lower extremities. Negative Hoffmans, babinski, and clonus signs. Psychiatric: Cooperative, appropriate mood & affect, normal judgment. - Labs CBC & Chem 7: 05/30/24 05:20 05/30/24 05:20 Labs: Abnormal Lab Results - Last 24 Hours (Table) 05/30/24 05/30/24 Range/Units 05:20 05:20 WBC 13.44 H (4.50-10.00) X 10*3/uL Hgb 11.0 L (12.0-15.0) g/dL Hct 36.0 L (37.2-46.3) % MCH 26.7 L (27.0-32.0) pg MCHC 30.6 L (32.0-37.0) g/dL Immature Gran # 0.06 H (0.00-0.04) X 10*3/uL Neutrophils # 9.98 H (1.80-7.70) X 10*3/uL Eosinophils # 0.01 L (0.04-0.35) X 10*3/uL BUN 7.5 L (9.0-27.0) mg/dL Calcium 8.5 L (8.7-10.3) mg/dL Assessment and Plan Assessment: Postop day 1: Minimally invasive right L4-L5 posterolateral interbody fusion Plan: -Appreciate supervisor home energy consultant and team management. -Activity: Ambulate QID, OOB all meals, up and about, limit lifting bending twisting to less than 5 lbs. Use walker or cane if needed for stability. -Daily PT/OT, increase ambulation strength and balance. -Pain control: Adequate at this time -Meds: reviewed -GI ppx: senna, Miralax -DVT PPX: OK to restart Heparin tonight -Hygiene: Shower today. Maintain dressing clean and dry. Meticulous cleaning after BMs away from the incision site -Encourage IS 10x/hr -Dispo: Anticipate discharge home tomorrow with homecare *I reviewed and discussed this case with my attending Dr. Hayes, whom has reviewed this chart and films and is in agreement with assessment and plan of ca re as outlined above. I have personally seen and examined the patient, performed the documentation and the assessment and plan as written. Number of minutes spent on the visit: 20m.
[2024-05-30] MEDS: ATORVASTATIN 40 MG TAB PO SCH (10:39)
[2024-05-30] MEDS: LEVOTHYROXINE 88 MCG TAB PO SCH (10:49)
[2024-05-30 13:20] VITALS: BMI 18.3
--- NOTE | 2024-05-30 15:26 | P.CONS ---
History of Present Illness - Reason for Consult Consult date: 05/30/24 - History of Present Illness History of present illness: 64-year-old female with past medical history significant for moderate COPD, asthma, environmental allergies, smoking, low back pain who was following orthopedic spine for low back pain secondary to grade 1 spondylolisthesis of L4 on L5, L4-5 herniated nucleus pulposis with stenosis, with right lower extremity radiculopathy. Patient underwent L4-5 minimally invasive posterior lateral and interbody fusion on 05/29/2024. Internal medicine consulted for gianfranco swenson. Patient is feeling better today. Patient complained of back pain, orthopedic adjusting pain medications. Patient is afebrile, heart rate 80, respiratory rate 17, blood pressure 116/72, saturating 97% on 3 L. WBCs 13.4, hemoglobin 9.0, platelet 252, absolute neutrophils 9.98. BMP is unre markable. CT lumbar spine showed postsurgical changes of L4-5 fusion. REVIEW OF SYSTEMS: CONSTITUTIONAL: No fever, no malaise, no fatigue. HEENT: No recent visual problems or hearing problems. Denied any sore throat. CARDIOVASCULAR: No chest pain, orthopnea, PND, no palpitations, no syncope. PULMONARY: No shortness of breath, no cough, no hemoptysis. GASTROINTESTINAL: No diarrhea, no nausea, no vomiting, no abdominal pain. NEUROLOGICAL: No headaches, no weakness, no numbness. HEMATOLOGICAL: Denies any bleeding or petechiae. GENITOURINARY: Denies any burning micturition, frequency, or urgency. MUSCULOSKELETAL/RHEUMATOLOGICAL: Denies any joint pain, swelling, or any muscle pain. ENDOCRINE: Denies any polyuria or polydipsia. The rest of the 14-point review of systems is negative. PHYSICAL EXAMINATION: GENERAL: The patient is A&O x3, NAD HEENT: EOMI, Sclerae anicteric, Moist Mucous membranes Neck: Supple, Non tender, No JVD PULMONARY: Equal breath souds B/L, No wheezing, No crackles. CARDIOVASCULAR: S1, S2 present. No murmurs, rubs, or gallops. ABDOMEN: Soft, nontender, nondistended, normoactive bowel sounds. No guarding or rebound tenderness. MUSCULOSKELETAL: No edema, No cyanosis. No clubbing. Normal ROM. Intact peripheral pulses. EXTREMITIES: No cyanosis, clubbing, or pedal edema. NEUROLOGICAL: CN 2-12 grossly intact. No FND Assessment and plan: Lumbar stenosis: Management per orthopedic Antibiotics, surgical site/wound care, drain care per primary Pain control, DVT prophylaxis per primary Bowel/bladder protocol Moderate COPD: Pulmonary nodule: Smoking: Environmental allergies Stable Continue home inhalers albuterol, Symbicort, Spiriva, Last FEV1 was 68% Has been evaluated by pulmonary preoperatively, cleared for surgery Outpatient follow-up with pulmonary counseling to quit smoking Hyperlipidemia: Continue statin GERD: PPI History of rheumatoid arthritis History of thyroid cancer: DVT prophylaxis Per orthopedic Dictation was produced using [employer] dictation software. please excuse any grammatical, word or spelling errors. Past Medical History Past Medical History: Asthma, Cancer, COPD, GERD/Reflux, Hyperlipidemia, Osteoarthritis (OA), Rheumatoid Arthritis (RA), Thyroid Disorder Additional Past Medical History / Comment(s): hx. thyroid cancer-had surg., osteoporosis, chronic back pain History of Any Multi-Drug Resistant Organisms: None Reported Past Surgical History: Appendectomy, Back Surgery, Cholecystectomy, Hysterectomy Additional Past Surgical History / Comment(s): total thyroidectomy, left mastoid surg., myringotomy & tubes, anterior cervical fusion 08/31 Past Anesthesia/Blood Transfusion Reactions: Postoperative Nausea & Vomiting (PONV) Past Psychological History: No Psychological Hx Reported Smoking Status: Current every day smoker Past Alcohol Use History: Heavy Additional Past Alcohol Use History / Comment(s): 1ppd down to 4 cig/day since 1979,. drinks 6 beers per day Past Drug Use History: Marijuana Additional Drug Use History / Comment(s): 1 joint per day - Past Family History Mother Family Medical History: No Reported History Sister(s) Family Medical History: Pulmonary Embolus Additional Family Medical History / Comment(s): w/Covid Medications and Allergies Home Medications Medication Instructions Recorded Confirmed Type Albuterol Nebulized [Ventolin 2.5 mg INHALATION Q6H PRN 08/08/23 05/29/24 History Nebulized] Albuterol Sulfate [Proair 1 puff INHALATION Q6H PRN 08/08/23 05/29/24 History Digihaler] Atorvastatin [Lipitor] 40 mg PO DAILY 08/08/23 05/29/24 History Dicyclomine HCl 10 mg PO AC-TID 08/08/23 05/29/24 History Fluticasone Nasal [place] [Flonase 1 spray EA NOSTRIL DAILY 08/08/23 05/29/24 History Nasal [place]] Fluticasone/Umeclidin/Vilanter 1 puff INHALATION DAILY 08/08/23 05/29/24 History [Trelegy Ellipta 200-62.5-25] Levocetirizine Dihydrochloride 5 mg PO DAILY 08/08/23 05/29/24 History [Xyzal] Levothyroxine Sodium [Synthroid] 88 mcg PO DAILY 08/08/23 05/29/24 History Naproxen [Naprosyn] 500 mg PO BID 08/08/23 05/29/24 History Omeprazole [PriLOSEC] 20 mg PO AC-BRKFST 08/08/23 05/29/24 History Cholecalciferol (Vitamin D3) 125 mcg PO DAILY 05/26/24 05/29/24 History [Vitamin D3 (125 MCG = 5,000 IU)] Gabapentin 300 mg PO TID 05/26/24 05/29/24 History Allergies Allergy/AdvReac Type Severity Reaction Status Date / Time No Known Allergies Allergy Verified 05/29/24 06:29 Physical Exam Vitals: Vital Signs Temp Pulse Pulse Resp BP Pulse Ox 05/30/24 09:40 80 05/30/24 09:27 82 92 L 05/30/24 07:49 98.3 F 57 L 17 116/72 99 05/30/24 00:58 98.2 F 66 19 108/70 99 05/29/24 22:03 17 05/29/24 21:14 81 05/29/24 21:04 69 05/29/24 19:17 97.8 F 60 18 111/70 100 05/29/24 13:11 52 L 115/72 05/29/24 12:56 53 L 116/77 05/29/24 12:42 70 137/81 05/29/24 12:28 76 05/29/24 12:27 93 L 05/29/24 12:26 74 137/92 05/29/24 12:19 66 05/29/24 12:12 69 120/64 05/29/24 11:56 83 130/83 05/29/24 11:45 83 16 129/83 97 05/29/24 11:30 89 15 120/74 95 09/20/24 11:15 89 15 136/91 93 L 05/29/24 11:00 90 16 155/89 95 05/29/24 10:47 90 18 174/108 96 05/29/24 10:32 82 16 193/96 99 05/29/24 10:17 82 16 167/108 100 05/29/24 10:02 97.0 F L 88 14 163/96 100 Intake and Output 05/29/24 05/30/24 05/30/24 22:59 06:59 14:59 Other: # Voids 1 2 Results CBC & Chem 7: 05/30/24 05:20 05/30/24 05:20 Labs: Abnormal Lab Results - Last 24 Hours (Table) 05/30/24 05/30/24 Range/Units 05:20 05:20 WBC 13.44 H (4.50-10.00) X 10*3/uL Hgb 11.0 L (12.0-15.0) g/dL Hct 36.0 L (37.2-46.3) % MCH 26.7 L (27.0-32.0) pg MCHC 30.6 L (32.0-37.0) g/dL Immature Gran # 0.06 H (0.00-0.04) X 10*3/uL Neutrophils # 9.98 H (1.80-7.70) X 10*3/uL Eosinophils # 0.01 L (0.04-0.35) X 10*3/uL BUN 7.5 L (9.0-27.0) mg/dL Calcium 8.5 L (8.7-10.3) mg/dL
[2024-05-30] MEDS: HYDROcodone/APAP 10-325MG 1 EACH TAB PO PRN (17:17)
[2024-05-30] MEDS: CYCLOBENZAPRINE 5 MG TAB PO PRN (17:19)
[2024-05-31] MEDS: PANTOPRAZOLE 40 MG TABLET PO SCH (06:30)
[2024-05-31] MEDS: CHOLECALCIFEROL 125 MCG (5000 IU) TABLET PO SCH (08:00)
[2024-05-31] MEDS: SENNOSIDES-DOCUSATE SODIUM 1 EACH TAB PO PRN (08:04)
[2024-05-31 08:55] VITALS: BP 145/84; PULSE 99; RESP 17; TEMP 98.9
--- NOTE | 2024-05-31 10:40 | P.PN ---
Subjective Progress Note Date: 05/31/24 Principal diagnosis: 1. Grade I spondylolisthesis of L4 on L5 2. L4-5 herniated nucleus pulposus with stenosis 3. Right lower extremity radiculopathy Patient seen and examined this morning. Patient is resting comfortably in bed. She states her pain is better managed on current regimen. Surgical incisions to the lumbar spine are clean dry and intact, no shadowing noted. Patient reports she is ambulating in room and tolerating activity well. No acute concerns at this time. Patient states she feels safe going home today. Discharge inst ructions have been discussed. Objective - Vital Signs Vital signs: Vital Signs Temp 98.9 F 05/31/24 07:13 Pulse 99 05/31/24 07:13 Resp 17 05/31/24 07:13 BP 145/84 05/31/24 07:13 Pulse Ox 92 L 05/31/24 07:13 FiO2 Intake & Output 05/30/24 05/31/24 05/31/24 18:59 06:59 18:59 Weight 50.2 kg Other: Voiding Method Toilet Toilet # Voids 3 2 - Exam Physical Examination General: The patient is awake and alert, in no acute distress Skin: Skin is warm and dry with no obvious rashes or lesions. Surgical incisions to the lumbar spine, dressings are clean dry and intact with no shadowing noted. Eye: Pupils are equal, round and reactive to light, extra-ocular movements are intact; there is normal conjunctiva bilaterally. Neck: The neck is supple, there is no tenderness and ROM intact. Cardiovascular: There is a regular rate and rhythm. No murmur, rub or gallop is appreciated. Respiratory: Respirations are non-labored, breath sounds are equal. Gastrointestinal: Soft, non-distended, non-tender abdomen. Back: There is no tenderness to palpation in the midline, paralumbar, parathoracic or buttocks region. There is no obvious deformity . Musculoskeletal: ROM limited secondary to pain and stiffness from surgical procedure. Right: Shoulder abduction 5/5, elbow flexors 5/5, wrist dorsiflexors 5/5. finger abductor 5/5, fire protection inspector 5/5, hip flexor 4/5, knee flexor 4/5, ankle dorsiflexor 4/5, ankle plantarflexion 4/5 and extensor hallucis 4/5. Left: Shoulder abduction 5/5, elbow flexors 5/5, wrist dorsiflexors 5/5. finger abductor 5/5, fire protection inspector 5/5, hip flexor 4/5, knee flexor 4/5, ankle dorsiflexor 4/5, ankle plantarflexion 4/5 and extensor hallucis 4/5. Neurological: CN 2-12 intact. There are no obvious motor or sensory deficits. Movement and coordination equal and intact. Sensory exam to light touch intact C5-T1 and intact from L2-S1. Reflexes 2/4 in bilateral upper and lower extremities. Negative Hoffmans, babinski, and clonus signs. Psychiatric: Cooperative, appropriate mood & affect, normal judgment. - Labs CBC & Chem 7: 05/30/24 05:20 05/30/24 05:20 Assessment and Plan Assessment: Postop day 2: Minimally invasive right L4-L5 posterolateral interbody fusion Plan: -Appreciate legal consultant and team management. -Activity: Ambulate QID, OOB all meals, up and about, limit lifting bending twisting to less than 5 lbs. Use walker or cane if needed for stability. -Daily PT/OT, increase ambulation strength and balance. -Pain control: Adequate at this time -Meds: reviewed -GI ppx: senna, Miralax -DVT PPX: SCDs/TEDs -Hygiene: Shower today. Maintain dressing clean and dry. Meticulous cleaning after BMs away from the incision site -Encourage IS 10x/hr -Dispo: Discharge home later today. *I reviewed and discussed this case with my attending Dr. Hayes, whom has reviewed this chart and films and is in agreement with assessment and plan of care as outlined above. I have personally seen and examined the patient, performed the documentation and the assessment and plan as written. Number of minutes spent on the visit: 20m.
--- NOTE | 2024-05-31 10:48 | P.DS ---
Providers Date of admission: 05/29/24 Expected date of discharge: 05/31/24 Attending physician: Srikanth Hayes DO Consults: 05/29/24 10:05 Consult Physician Routine Consulting Provider: Yordy Schuster Consult Reason/Comments: medical management s/p L4-L5 PLIF Do you want consulting provider notified?: Yes Primary care physician: Yanni Liu [facility] Course: Hospital Course: The patient was evaluated preoperatively and found to have the diagnosis of L4- L5 spondylolisthesis. They underwent appropriate preoperative care and were willing to undergo the intended procedure. They underwent a successful L4-L5 minimally invasive PLIF, were recovered appropriately and sent to the floor. While on the floor they worked with physical therapy, occupational therapy and nursing to enhance their recovery experience. Their pain was well controlled through their stay and they were started on appropriate medications, DVT ppx modalities, activity and dietary needs. Daily labs were monitored closely, and transfusions were only used when necessary. Medicine as well as other consulting services have made their input and have helped with our team approach and multidisciplinary care. PT milestones have been met and passed and they have made the recommendation of home for this patient and treating providers agree with this care path. The patient will be discharged home with appropriate medications, instructions and follow-up information and in stable condition. Patient Condition at Discharge: Good Plan - Discharge Summary Discharge Rx Participant: Yes New Discharge Prescriptions: New cefaDROXiL [Duricef] 500 mg PO Q12HR #10 cap Cyclobenzaprine [Flexeril] 5 mg PO TID PRN #40 tablet PRN Reason: Muscle Spasm Gabapentin 300 mg PO TID #90 cap HYDROcodone/APAP 10-325MG [[place] 10-325] 1 tab PO Q4-6H PRN #40 tab PRN Reason: Pain Sennosides/Docusate Sodium [Senna Plus 8.6-50 mg Softgel] 1 each PO DAILY PRN #20 capsule PRN Reason: Constipation No Action Levothyroxine Sodium [Synthroid] 88 mcg PO DAILY Atorvastatin [Lipitor] 40 mg PO DAILY Albuterol Sulfate [Proair Digihaler] 1 puff INHALATION Q6H PRN PRN Reason: Wheezing Albuterol Nebulized [Ventolin Nebulized] 2.5 mg INHALATION Q6H PRN PRN Reason: Shortness Of Breath Naproxen [Naprosyn] 500 mg PO BID Levocetirizine Dihydrochloride [Xyzal] 5 mg PO DAILY Fluticasone/Umeclidin/Vilanter [Trelegy Ellipta 200-62.5-25] 1 puff INHALATION DAILY Dicyclomine HCl 10 mg PO AC-TID Fluticasone Nasal [place] [Flonase Nasal [place]] 1 spray EA NOSTRIL DAILY Omeprazole [PriLOSEC] 20 [facility] Cholecalciferol (Vitamin D3) [Vitamin D3 (125 MCG = 5,000 IU)] 125 mcg PO DAILY Gabapentin 300 mg PO TID Discharge Medication List Albuterol Nebulized [Ventolin Nebulized] 2.5 mg INHALATION Q6H PRN 08/08/23 [History] Albuterol Sulfate [Proair Digihaler] 1 puff INHALATION Q6H PRN 08/08/23 [History] Atorvastatin [Lipitor] 40 mg PO DAILY 08/08/23 [History] Dicyclomine HCl 10 mg PO AC-TID 08/08/23 [History] Fluticasone Nasal [place] [Flonase Nasal [place]] 1 spray EA NOSTRIL DAILY 08/08/23 [History] Fluticasone/Umeclidin/Vilanter [Trelegy Ellipta 200-62.5-25] 1 puff INHALATION DAILY 08/08/23 [History] Levocetirizine Dihydrochloride [Xyzal] 5 mg PO DAILY 08/08/23 [History] Levothyroxine Sodium [Synthroid] 88 mcg PO DAILY 08/08/23 [History] Naproxen [Naprosyn] 500 mg PO BID 08/08/23 [History] Omeprazole [PriLOSEC] 20 mg PO AC-BRKFST 08/08/23 [History] Cholecalciferol (Vitamin D3) [Vitamin D3 (125 MCG = 5,000 IU)] 125 mcg PO DAILY 05/26/24 [History] Gabapentin 300 mg PO TID 05/26/24 [History] Cyclobenzaprine [Flexeril] 5 mg PO TID PRN #40 tablet 05/31/24 [Rx] Gabapentin 300 mg PO TID #90 cap 05/31/24 [Rx] HYDROcodone/APAP 10-325MG [[place] 10-325] 1 tab PO Q4-6H PRN #40 tab 05/31/24 [Rx] Sennosides/Docusate Sodium [Senna Plus 8.6-50 mg Softgel] 1 each PO DAILY PRN #20 capsule 05/31/24 [Rx] cefaDROXiL [Duricef] 500 mg PO Q12HR #10 cap 05/31/24 [Rx] Follow up Appointment(s)/Referral(s): Yanni Liu DO [Primary Care Provider] - 1 Week Srikanth Hayes DO [Doctor of Osteopathic Medicine] - 2 Weeks Activity/Diet/Wound Care/Special Instructions: Spine Discharge and Recovery Instructions Date of Surgery: 05/29/2024 Diagnosis: Lumbar spondylolisthesis Procedure: L4-L5 minimally invasive posterolateral interbody fusion Medications: See medication list All medication refills should be obtained through your primary care doctor or your clinic spine surgeon. Please discuss prescription refills at your follow up appointment. Do not call the hospital for medication refills. Activity: Encourage ambulation with assist of walker, Up and about 6-8x daily PT/OT daily work on balance, strength and mobility Up in chair with all meals Shower daily Brace: Use brace when up and about, do not wear in bed or shower Dressing: Leave your dressing in place for a total of 3 days post operatively. Then you may remove your dressing and leave open to air. Keep the area clean and if not able to keep area clean, then cover with sterile gauze and tape. Showering: You may shower 3 days after your procedure allowing soap and water to run over incision. Do not scrub. Do not soak. Blot dry. Follow up: Please confirm a follow up appointment with your surgeon 2 weeks post operatively. Please make an appointment to follow up with your PCP in 1-2 weeks after surgery for evaluation '3 phase, 3-week plan' POST OP WEEKS 1-3 1. Lifting/carrying/pushing/pulling limited to less than 5 pounds. 2. Do not sit for longer than 15 minutes at one time. Get up and walk around. Prolonged sitting is NOT advised. If you lay down, see if you can tolerate laying down on you front (belly side) 3. Walk for periods of 15 minutes = 1 mile but no longer; do it multiple times times each day. 4. Ice your low back after activity. POST OP WEEKS 3-6 1. Lifting limited to less than 20 pounds. 2. Do not sit for longer than 30 minutes at a time. Frequently change positions. Use a sit-to stand workstation or take frequent breaks from sitting if you have returned to work. 3. Walk for 30 minutes each day. If possible, do these three or more times a day POST OP WEEKS 6+ At your 6-week appointment we will give you a physical therapy referral to focus on a core stabilization and strengthening program. You should also work on leg & buttock strengthening, hamstring & quadriceps stretching, and continue a low impact aerobic activity program such as swimming, walking, or riding a stationary bicycle. During the initial 6 weeks after your surgery, you are at the highest risk of re-injuring your spine. You should generally avoid BLT's (bending, lifting and twisting combination motions) and follow the above guidelines to reduce the chance of reinjury. You can anticipate post op appointments in our office at approximately 3 weeks and 6 weeks after your surgery. INCISION CARE: If your incision is not draining you do NOT need to cover it with a dressing. Keep your incision clean, dry and intact. In most cases, we apply skin glue, amanda or sutures to the incision at the time of surgery. This will be like a crust or have the appearance of a scab and will fall off in time on its own. The stitches or amanda need to be removed at 3 weeks post op appointment. You may begin to shower 3 days after surgery (this allows the glue to lacy well). However, please avoid scrubbing the incision site or peeling off any of the skin glue. This will ensure optimal healing of your incision. Also, during this time avoid soaking the incision area in water - this includes swimming pools, hot tubs or baths. No ointments, lotions or oils on the incision until your surgeon allows. Leave amanda, sutures or glue in place. Neurological dysfunction that comes on suddenly can also be a sign of a stroke. Below some common symptoms of a stroke are listed: B - balance difficulty such as sudden onset walking or leaning to one side - NEW E - eye problem such as sudden double vision or trouble seeing on one side - NEW F - Facial weakness or numbness on one side - NEW A - Arm or leg weakness or numbness on one side - NEW S - Slurred speech or difficulty with word finding - NEW T - Time is BRAIN! Call 911 as soon as you recognize these symptoms Diet: Consume a regular diet rich in vegetables and lean protein such as chicken or fish. You should consume in a ratio of approximately 20% fats|40% carbohydrates|40%protein. Vegetables, sweet potatoes, brown rice or quinoa are examples of good carbohydrates. Chips, white bread, cookies and sweets/sugar are examples of bad carbohydrates. Limit your bad carbs, go wild with good carbs. "Life's Simple 7" Guidelines as per [place] [employer] These will help you reclaim your life after surgery and service station helper in your recovery, keeping in mind your restrictions. (1) Get Active. Physical activity can help people lose weight, control high blood pressure and cholesterol, feel emotionally better, and sleep better. (2) Control Cholesterol. Avoid a diet high in saturated fat, trans fat, & cholesterol. Limit whole milk & cream, ice cream, butter, egg yolks, processed meats (like sausage and hot dogs), and fatty meats. Choose healthy foods that are low in saturated fat, trans fat and cholesterol which include: Fruits and vegetables, fiber rich grain products (like whole grain pasta and brown rice), lean meat such as chicken, fish, nuts, seeds, and legumes. (3) Eat Better. Eat small portions. Shop at the grocery with a list and do not stray from it. Tips for a healthy diet include: Limit sodium intake to less than 1500mg daily, avoid prepackaged, processed, and fast foods, choose a diet rich in fruits, vegetables, and whole grain, high fiber foods, and limit saturated & cholesterol in your diet. (4) Manage Blood Pressure. If you have high blood pressure, you should have a cuff at home so that you can check your blood pressure regularly. Be sure you have a good cuff. An arm one is generally better than a wrist one. Bring the cuff to a doctor's appointment to validate that the measurements that your cuff are taking are accurate. Take your blood pressure twice daily when you are sitting down and relaxing. Record the numbers in a log and bring this log with you to your doctors' appointments. (5) Lose Weight if your BMI is above 25. A healthy BMI is between 19-25. To calculate Your BMI, you may use a Standard BMI Calculator on the NIH BMI website: <www.nhlbi.nih.gov/guidelines/obesity/BMI/bmicalc.htm>. Weigh oneself daily. If you are overweight, set a goal to lose weight. A pound a week loss if needed is a good target. (6) Reduce Blood Sugar. Limit foods and liquids with "added sugars." (Added sugars include sucrose, fructose, glucose, maltose, dextrose, high fructose corn syrup, corn syrup, concentrated fruit juice and honey). (7) Stop Smoking. If you smoke, quitting smoking is one of the best things that you can do for your health. Smoking increases your risk of heart attack, stroke, and peripheral vascular disease, which is a build-up of plaque in your arteries. Please discard all the cigarettes and lighters in your house. Have a plan for what you will do when you have the urge to smoke. Direct and second- hand smoke shortens your life as well as the lives of your family, friends and others around you. For your health and the health of those around you, please consider quitting! Proper Bending Body Mechanics: Maintain a wide stance with one foot slightly in front of the other. Keep your back straight. Bend utilizing the strength in your hips and knees. Do not bend at the waist. Maintain the lifted object at your waist-level close to your body. Avoid lifting weight that causes immediately pain or pain anywhere in the body afterwards. Smoking/Nicotine If there was ever one thing that you could do to increase your overall health, decrease your risk of cardiovascular problems by about 39% the second you make the choice, it is to STOP SMOKING. Your body's most instant gratification is the second you stop smoking. We have all heard the studies, read the articles but it is true, smoking is extremely bad for your overall health, and moreover it is detrimental to your bone health. Nicotine, IN ANY FORM, kills bone cells, prevents your body from healing fractures, and significantly prolongs healing after surgery. In spine surgery specifically, it increases your risk of not healing your bones to create a fusion and increases your risk of having a revision surgery due to this up to 60%. I know it is hard. I know it feels impossible. But there are ways. Take control of your life. We are here to help you through it. And when you are ready, ask us and we can direct you to help if you desire. Use the START Plan to Quit Smoking (please visit the Helpguide.org website listed below for more information): S = Set a quit date. Choose a date within the next 2 weeks, so you have enough time to prepare without losing your motivation to quit. If you mainly smoke at work, quit on the weekend, so you have a few days to adjust to the change. T = Tell family, friends, and co-workers that you plan to quit. Let your friends and family in on your plan to quit smoking and tell them you need their support and encouragement to stop. Look for a quit bahman who wants to stop smoking as well. You can help each other get through the rough times. A = Anticipate and plan for the challenges you'll face while quitting. Most people who begin smoking again do so within the first 3 months. You can help yourself make it through by preparing ahead for common challenges, such as nicotine withdrawal and cigarette cravings. R = Remove cigarettes and other tobacco products from your home, car, and work. Throw away all your cigarettes (no emergency pack!), lighters, ashtrays, and matches. Wash your clothes and freshen up anything that smells like smoke. Shampoo your car, clean your drapes and carpet, and steam your furniture. T = Talk to your doctor about getting help to quit. Your doctor can prescribe medication to help with withdrawal and suggest other alternatives. If you can't see a doctor, you can get many products over the counter at your local pharmacy or grocery store, including the nicotine patch, nicotine lozenges, and nicotine gum. Resources for Quitting Smoking: <https://www.[place].gov/documents/[facility]/Quit_Tobacco_Resources_for_patients_313 480_7.pdf> Supplementation: Take recommended dosages of Vitamin D and Calcium to help fortify your bones and help them to heal. See your health maintenance packet for dosages and recommended levels. DVT/VTE prophylaxis: You will be given compression stockings from the hospital. Wear these daily for the first two weeks after surgery. You may take them off at night. You may be prescribed a medication to help thin your blood. Take this as directed. If you are not prescribed this medication, early and frequent ambulation has been shown to be the best prophylaxis to deep vein thrombosis and sequelae related to this event. Discharge Disposition: HOME SELF-CARE
--- NOTE | 2024-06-09 18:22 | FL ---
EXAMINATION TYPE: FL guidance operating room, XR lumbar spine 2 or 3V DATE OF EXAM: 05/29/2024 9:56 AM COMPARISON: Pre Operative Images if available both CT/MRI or plain film CLINICAL INDICATION: Female, 64 years old with history of LUMBAR DISC HERNIATION; TECHNIQUE: FL guidance operating room, XR lumbar spine 2 or 3V, multiple fluoroscopic images provided for procedure. Total fluoroscopy time: 50.2 seconds Total submitted images to PACS: 4 DAP: [id number] mGym2 Gycm2 uGym2 cGycm2 FINDINGS: Fluoroscopic images during internal fixation/arthroplasty demonstrate fixation hardware in appropriat e position. Hardware appears intact. No immediate complication identified. IMPRESSION: 1. No evidence for intraoperative complication. 2. Please see the operative/procedural note for further details. [facility], , 06/09/2024 6:19 PM
== END 2024-05-31 11:54 | disposition home or self-care (01) ==
LOC: OR 05:32 → 4SSUR 09:50 → OR 05-31 11:54
PROVIDERS: ATTEND Orthopaedic Surgery
CPT/HCPCS: 72100; 72131; 80048; 85025; 94640; 94760

== ENCOUNTER 2024-06-17 06:33 | Emergency (ER) | payer OTHER ==
--- NOTE | 2024-06-17 07:15 | ED ---
Back Pain HPI - General Chief Complaint: Back Pain/Injury Stated Complaint: Post-Op Back Pain Time Seen by Provider: 06/17/24 07:05 Source: patient, RN notes reviewed Limitations: no limitations - History of Present Illness Initial Comments: This is a 64-year-old female presenting with low back pain x 7 days. Patient rates pain 10 out of 10, radiating to her right leg to her toes. Patient endorses surgery with Dr. Bakari Reyes 3 weeks ago for L4/L5 decompression where she received rods and pins. Patient states pain is constant with tingling/pins and needle sensation radiating down right leg. Patient states pain worsens with any movement. Endorses receiving [place] and Flexeril following surgery but has since run out. Patient endorses last receiving a lumbosacral x-ray about 5 days ago with no concerning findings at the time. Patient endorses use of gabapentin, naproxen this morning along with ice and heat with minimal relief MD Complaint: back pain Onset/Timin -: days(s) Radiation: right leg Severity: severe Severity scale (1-10): 10 Quality: tingling - Related Data Home Medications Medication Instructions Recorded Confirmed Albuterol Nebulized [Ventolin 2.5 mg INHALATION Q6H PRN 08/08/23 05/29/24 Nebulized] Albuterol Sulfate [Proair 1 puff INHALATION Q6H PRN 08/08/23 05/29/24 Digihaler] Atorvastatin [Lipitor] 40 mg PO DAILY 08/08/23 05/29/24 Dicyclomine HCl 10 mg PO AC-TID 08/08/23 05/29/24 Fluticasone Nasal [place] [Flonase 1 spray EA NOSTRIL DAILY 08/08/23 05/29/24 Nasal [place]] Fluticasone/Umeclidin/Vilanter 1 puff INHALATION DAILY 08/08/23 05/29/24 [Trelegy Ellipta 200-62.5-25] Levocetirizine Dihydrochloride 5 mg PO DAILY 08/08/23 05/29/24 [Xyzal] Levothyroxine Sodium [Synthroid] 88 mcg PO DAILY 08/08/23 05/29/24 Naproxen [Naprosyn] 500 mg PO BID 08/08/23 05/29/24 Omeprazole [PriLOSEC] 20 mg PO AC-BRKFST 08/08/23 05/29/24 Cholecalciferol (Vitamin D3) 125 mcg PO DAILY 05/26/24 05/29/24 [Vitamin D3 (125 MCG = 5,000 IU)] Gabapentin 300 mg PO TID 05/26/24 05/29/24 Previous Rx's Medication Instructions Recorded Cyclobenzaprine [Flexeril] 5 mg PO TID PRN #40 tablet 05/31/24 Gabapentin 300 mg PO TID #90 cap 05/31/24 HYDROcodone/APAP 10-325MG [[place] 1 tab PO Q4-6H PRN #40 tab 05/31/24 10-325] Sennosides/Docusate Sodium [[place]enna 1 each PO DAILY PRN #20 capsule 05/31/24 Plus 8.6-50 mg Softgel] cefaDROXiL [Duricef] 500 mg PO Q12HR #10 cap 05/31/24 predniSONE 10 mg PO DIRECTED #20 tab 06/17/24 Allergies Allergy/AdvReac Type Severity Reaction Status Date / Time No Known Allergies Allergy Verified 06/17/24 06:40 Review of Systems ROS Statement: Those systems with pertinent positive or pertinent negative responses have been documented in the HPI. ROS Other: All systems not noted in ROS Statement are negative. Past Medical History Past Medical History: Asthma, Cancer, COPD, GERD/Reflux, Hyperlipidemia, Osteoarthritis (OA), Rheumatoid Arthritis (RA), Thyroid Disorder Additional Past Medical History / Comment(s): hx. thyroid cancer-had surg., osteoporosis, chronic back pain History of Any Multi-Drug Resistant Organisms: None Reported Past Surgical History: Appendectomy, Back Surgery, Cholecystectomy, Hysterectomy Additional Past Surgical History / Comment(s): total thyroidectomy, left mastoid surg., myringotomy & tubes, anterior cervical fusion 08/31 Past Anesthesia/Blood Transfusion Reactions: Postoperative Nausea & Vomiting (PONV) Past Psychological History: No Psychological Hx Reported Smoking Status: Current every day smoker Past Alcohol Use History: Heavy Past Drug Use History: Marijuana - Past Family History Mother Family Medical History: No Reported History Sister(s) Family Medical History: Pulmonary Embolus Additional Family Medical History / Comment(s): w/Covid General Exam Limitations: no limitations General appearance: alert, in no apparent distress Head exam: Present: atraumatic, normocephalic, normal inspection Eye exam: Present: normal appearance, PERRL, EOMI. Absent: scleral icterus, conjunctival injection, periorbital swelling ENT exam: Present: normal exam, mucous membranes moist Neck exam: Present: normal inspection. Absent: tenderness, meningismus, lymphadenopathy Respiratory exam: Present: normal lung sounds bilaterally. Absent: respiratory distress, wheezes, rales, rhonchi, stridor Cardiovascular Exam: Present: regular rate, normal rhythm, normal heart sounds. Absent: systolic murmur, diastolic murmur, rubs, gallop, clicks GI/Abdominal exam: Present: soft, normal bowel sounds. Absent: distended, tenderness, guarding, rebound, rigid Extremities exam: Present: normal inspection, full ROM, normal capillary refill. Absent: tenderness, pedal edema, joint swelling, calf tenderness Back exam: Present: normal inspection, tenderness, muscle spasm (Positive bilateral paralumbar muscle spasm tenderness.), paraspinal tenderness, vertebral tenderness (Positive lumbar spinal tenderness without obvious crepitus or step- off.), other (Positive pain reproduced with right straight leg raise. Hip flexor strength 4 out of 5. Right pedal sensation normal in all dermatomes. Normal plantar and dorsiflexion of right foot. dorsalis pedis and posterior tibialis +2) Neurological exam: Present: alert, oriented X3, CN II-XII intact Psychiatric exam: Present: normal affect, normal mood Skin exam: Present: warm, dry, intact, normal color. Absent: rash Course Vital Signs 06/17/24 06/17/24 06/17/24 06:35 07:30 10:27 Temperature 97.5 F L 97.8 F 98.1 F Pulse Rate 81 73 72 Respiratory 20 17 18 Rate Blood Pressure 181/92 159/99 138/84 O2 Sat by Pulse 98 96 94 L Oximetry 06/17/24 10:41 Temperature 97.9 F Pulse Rate 64 Respiratory 16 Rate Blood Pressure 132/82 O2 Sat by Pulse 96 Oximetry Medical Decision Making - Medical Decision Making Was pt. sent in by a medical professional or institution (, PA, MANUGRAPHER, urgent care, hospital, or jail...) When possible be specific @ -No Did you speak to anyone other than the patient for history (EMS, parent, family, police, friend...)? What history was obtained from this source @ -No Did you review nursing and triage notes (agree or disagree)? Why? @ -I reviewed and agree with nursing and triage notes Were old charts reviewed (outside hosp., previous admission, EMS record, old EKG, old radiological studies, urgent care reports/EKG's, jail records)? Report findings @ -No old charts were reviewed Differential Diagnosis (chest pain, altered mental status, abdominal pain women, abdominal pain men, vaginal bleeding, weakness, fever, dyspnea, syncope, headache, dizziness, GI bleed, back pain, seizure, CVA, palpatations, mental health, musculoskeletal)? @ -Differential Back Pain: Strain, zoster, cauda equina syndrome, epidural abscess, vertebral osteomyelitis, discitis, fracture, subluxation, disc herniation, DJD, spinal stenosis, dissection, AAA, pancreatitis, peptic ulcer disease, pyelonephritis, kidney stone, this is not meant to be an all-inclusive list. EKG interpreted by me (3pts min.). @ -Not done X-rays interpreted by me (1pt min.). @ -Lumbosacral radiograph reveals surgical rods and pins but otherwise no obvious fractures deformities step-off or significant intervertebral narrowing. CT interpreted by me (1pt min.). @ -None done U/S interpreted by me (1pt. min.). @ -None done What testing was considered but not performed or refused? (CT, X-rays, U/S, labs)? Why? @ -None What meds were considered but not given or refused? Why? @ -None Did you discuss the management of the patient with other professionals (professionals i.e. , PA, MANUGRAPHER, lab, RT, psych nurse, long term care social worker, manager program management, teacher, correction officer reformatory, correctional case manager)? Give summary @ -No Was smoking cessation discussed for >3mins.? @ -No Was critical care preformed (if so, how long)? @ -No Were there social determinants of health that impacted care today? How? (Homelessness, low income, unemployed, alcoholism, drug addiction, transpo rtation, low edu. Level, literacy, decrease access to med. care, usp, rehab)? @ -No Was there de-escalation of care discussed even if they declined (Discuss DNR or withdrawal of care, Hospice)? DNR status @ -No What co-morbidities impacted this encounter? (DM, HTN, Smoking, COPD, CAD, Cancer, CVA, ARF, Chemo, Hep., AIDS, mental health diagnosis, sleep apnea, morbid obesity)? @ -None Was patient admitted / discharged? Hospital course, mention meds given and route, prescriptions, significant lab abnormalities, going to OR and other pertinent info. @ -Discharge. Lab work and right radiographs largely unremarkable. Patient notes improvement following IV administration of Norflex and Dilaudid. Per attending, prednisone taper sent for radiculopathy. Advised patient notify surgeon of ongoing pain for narcotic and muscle relaxer prescription refill. Undiagnosed new problem with uncertain prognosis? @ -No Drug Therapy requiring intensive monitoring for toxicity (Heparin, Nitro, Insulin, Cardizem)? @ -No Were any procedures done? @ -No Diagnosis/symptom? @ -Postsurgical lumbosacral pain, radiculopathy Acute, or Chronic, or Acute on Chronic? @ -Acute Uncomplicated (without systemic symptoms) or Complicated (systemic symptoms)? @ -Uncomplicated Side effects of treatment? @ -No Exacerbation, Progression, or Severe Exacerbation? @ -No Poses a threat to life or bodily function? How? (Chest pain, [place], NH, pneumonia, PE, COPD, DKA, ARF, appy, cholecystitis, CVA, Diverticulitis, Homicidal, Suicidal, threat to staff... and all critical care pts) @ -No - Lab Data Result diagrams: 06/17/24 07:34 06/17/24 07:34 Lab Results 06/17/24 06/17/24 Range/Units 07:34 07:34 WBC 9.2 (3.8-10.6) k/uL RBC 4.52 (3.80-5.40) m/uL Hgb 12.6 (11.4-16.0) gm/dL Hct 38.7 (34.0-46.0) % MCV 85.8 (80.0-100.0) fL MCH 27.8 (25.0-35.0) pg MCHC 32.4 (31.0-37.0) g/dL RDW 14.7 (11.5-15.5) % Plt Count 401 (150-450) k/uL MPV 8.4 Neutrophils % 64 % Lymphocytes % 26 % Monocytes % 5 % Eosinophils % 2 % Basophils % 1 % Neutrophils # 5.9 (1.3-7.7) k/uL Lymphocytes # 2.4 (1.0-4.8) k/uL Monocytes # 0.5 (0-1.0) k/uL Eosinophils # 0.2 (0-0.7) k/uL Basophils # 0.1 (0-0.2) k/uL Hypochromasia Slight Sodium 140 (137-145) mmol/L Potassium 5.1 (3.5-5.1) mmol/L Chloride 109 H (98-107) mmol/L Carbon Dioxide 27 (22-30) mmol/L Anion Gap 4 mmol/L BUN 15 (7-17) mg/dL Creatinine 0.56 (0.52-1.04) mg/dL Est GFR (CKD-EPI)AfAm >90 (>60 ml/min/1.73 sqM) Est GFR (CKD-EPI)NonAf >90 (>60 ml/min/1.73 sqM) Glucose 88 (74-99) mg/dL Calcium 9.1 (8.4-10.2) mg/dL Total Bilirubin 0.7 (0.2-1.3) mg/dL AST 28 (14-36) U/L ALT 16 (4-34) U/L Alkaline Phosphatase 145 H (38-126) U/L Total Protein 6.9 (6.3-8.2) g/dL Albumin 3.8 (3.5-5.0) g/dL Disposition Clinical Impression: Mechanical back pain, Sciatica Disposition: HOME SELF-CARE Condition: Good Instructions (If sedation given, give patient instructions): Acute Low Back Pain (ED) Prescriptions: predniSONE 10 mg PO DIRECTED #20 tab Is patient prescribed a controlled substance at d/c from ED?: No Referrals: Yanni Liu DO [Primary Care Provider] - 1-2 days Time of Disposition: 09:50
[2024-06-17] MEDS: ORPHENADRINE 30 MG/ML 2 ML VIAL IM STA (07:48)
[2024-06-17] MEDS: HYDROmorphone 0.5 MG/0.5 ML SYRINGE IVP STA (07:49)
[2024-06-17 07:54] LABS: Basophils # (A) 0.1 k/uL (0-0.2); Basophils % (A) 1 %; Eosinophils # (A) 0.2 k/uL (0-0.7); Eosinophils % (A) 2 %; HCT 38.7 % (34.0-46.0); HGB 12.6 gm/dL (11.4-16.0); Hypochromasia Slight; Lymphocytes # (A) 2.4 k/uL (1.0-4.8); Lymphocytes % (A) 26 %; MCH 27.8 pg (25.0-35.0); MCHC 32.4 g/dL (31.0-37.0); MCV 85.8 fL (80.0-100.0); Mean Platelet Volume 8.4; Monocytes # (A) 0.5 k/uL (0-1.0); Monocytes % (A) 5 %; Neutrophils # (A) 5.9 k/uL (1.3-7.7); Neutrophils % (A) 64 %; Platelet Count 401 k/uL (150-450); RBC 4.52 m/uL (3.80-5.40); RDW 14.7 % (11.5-15.5); WBC 9.2 k/uL (3.8-10.6)
[2024-06-17 08:06] LABS: ALT 16 U/L (4-34); African American GFR (CKD) >90 (>60 ml/min/1.73 sqM); Albumin 3.8 g/dL (3.5-5.0); Anion Gap 4 mmol/L; Blood Urea Nitrogen 15 mg/dL (7-17); Calcium 9.1 mg/dL (8.4-10.2); Carbon Dioxide 27 mmol/L (22-30); Chloride 109 mmol/L (98-107); Glucose 88 mg/dL (74-99); Non-African American GFR(CKD) >90 (>60 ml/min/1.73 sqM); Sodium 140 mmol/L (137-145); Total Bilirubin 0.7 mg/dL (0.2-1.3); Total Protein 6.9 g/dL (6.3-8.2)
[2024-06-17 08:09] LABS: Potassium 5.1 mmol/L (3.5-5.1)
[2024-06-17 08:10] LABS: AST 28 U/L (14-36); Alkaline Phosphatase 145 U/L (38-126)
--- NOTE | 2024-06-17 08:20 | XR ---
EXAMINATION TYPE: XR lumbosacral spine min 4V DATE OF EXAM: 06/17/2024 CLINICAL HISTORY: pain COMPARISON: NONE TECHNIQUE: Frontal, lateral, and oblique images of the lumbar spine are obtained. FINDINGS: There are 5 lumbar type vertebral bodies identified. The lumbar spine shows satisfactory alignment without evidence of acute fracture or dislocation. Vertebral body heights are within normal limits. Postoperative changes of fusion at L4-5. Intervertebral spacer is in place. Pedicular screws noted. Postoperative alignment appears near-anatomic. The overlying soft tissue appears unremarkab le. IMPRESSION: No acute fracture or dislocation is seen in the lumbar spine.ICD 10 NO FRACTURE, INITIAL EVALUATION [facility], , 06/17/2024 8:17 AM
[2024-06-17 10:41] VITALS: BP 132/82; PULSE 64; RESP 16; TEMP 97.9
== END 2024-06-17 10:41 | disposition home or self-care (01) ==
LOC: EC 06:33
CPT/HCPCS: 36415; 72110; 80053; 85025; 96372; 96374; 99284

== ENCOUNTER → 2024-12-02 | Outpatient (CLI) | payer OTHER ==
--- NOTE | 2024-12-02 19:52 | MR ---
EXAMINATION TYPE: MR lumbar spine wo con DATE OF EXAM: 12/02/2024 COMPARISON: Prior MRI lumbar spine November 19, 2023. Prior lumbar spine x-ray June 17, 2024. Prior CT lumbar spine May 29, 2024 HISTORY: Can barely walk, extreme pain when driving, pain down right leg. History of surgery 2023. TECHNIQUE: Multiplanar, multisequence imaging of the lumbar spine is performed without IV contrast. FINDINGS: Sagittal images of the lumbar spine show vertebral body heights and alignment to appear sta ble and satisfactory. Multilevel disc desiccation is redemonstrated. New from prior MRI there is ru fact from metallic disc material and posterior bilateral intrapedicular elen and screws at the L4-L5 l evel. The conus medullaris remains normal in position and signal in the superior L1 level. Persistent Modic type II endplate change at the anterior L2-L3 disc space with moderate spurring. A few small T arlov cysts at S1 level are redemonstrated. Axial images show T12-L1 and L1-L2 levels remain within normal limits. Axial images L2-L3 level redemonstrates mild broad disc bulge minimally effacing the anterior thecal sac. Patent bilateral neural foramina. Axial images at the L3-L4 level shows mild broad-based posterior disc protrusion mildly effacing the anterior thecal sac with posterior annular tear. Bilateral neural foramina are patent. No significant change from prior. Axial images at the L4-L5 level shows a central stability artifact from the surgical change. There is persistent effacement of the anterior thecal sac due to posterior disc herniation which is less prom inent than prior. Etiology uncertain given the presence of new metallic disc material. Perhaps some r emnant disc? Axial images at L5-S1 level shows [id number] facet arthropathy. Spinal canal preserved. Bilater al neural foramina are patent. IMPRESSION: Interval surgical change at L4-L5 level with stable and satisfactory alignment. No new la rge disc herniations are present. [facility], , 12/02/2024 7:50 PM
== END | disposition home or self-care (01) ==
LOC: RADMRIMAIN 18:44
PROVIDERS: ATTEND Orthopaedic Surgery
DX: M51.16 Intervertebral disc disorders with radiculopathy, lumbar region (principal); M47.817 Spondylosis without myelopathy or radiculopathy, lumbosacral region; Z98.890 Other specified postprocedural states
CPT/HCPCS: 72148

== ENCOUNTER 2025-02-14 08:48 | Emergency (ER) | payer OTHER ==
[2025-02-14 08:59] VITALS: PULSE 119; RESP 18
[2025-02-14] MEDS: HYDROcodone/APAP 7.5-325MG 1 EACH TAB PO ONE (09:26)
--- NOTE | 2025-02-14 09:32 | ED ---
Recheck HPI - General Chief Complaint: Recheck/Abnormal Lab/Rx Stated Complaint: Post op issues from 6.3 Time Seen by Provider: 02/14/25 09:09 Source: patient, RN notes reviewed Mode of arrival: ambulatory Limitations: no limitations - History of Present Illness Initial Comments: This is a 65-year-old female who presents to the emergency department for c oncerns of problems related to her surgical incision. Patient had a laminectomy with Dr. Hayes 5 days ago. States that over the last few days she has noticed increasing drainage from her incision, which is concerning her. Denies any increase in her pain, fevers, or chills. She is changing the bandage once daily. - Related Data Home Medications Medication Instructions Recorded Confirmed Albuterol Nebulized [Ventolin 2.5 mg INHALATION Q6H PRN 08/08/23 02/09/25 Nebulized] Albuterol Sulfate [Proair 1 puff INHALATION Q6H PRN 08/08/23 02/09/25 Digihaler] Atorvastatin [Lipitor] 40 mg PO DAILY 08/08/23 02/09/25 Dicyclomine HCl 10 mg PO AC-TID 08/08/23 02/09/25 Fluticasone Nasal [place] [Flonase 1 spray EA NOSTRIL DAILY 08/08/23 02/09/25 Nasal [place]] Fluticasone/Umeclidin/Vilanter 1 puff INHALATION DAILY 08/08/23 02/09/25 [Trelegy Ellipta 200-62.5-25] Levocetirizine Dihydrochloride 5 mg PO DAILY 08/08/23 02/09/25 [Xyzal] Levothyroxine Sodium [Synthroid] 88 mcg PO MOTUWETHFRSA 08/08/23 02/09/25 Naproxen [Naprosyn] 500 mg PO BID 08/08/23 02/09/25 Omeprazole [PriLOSEC] 20 mg PO AC-BRKFST 08/08/23 02/09/25 Gabapentin 300 mg PO QID 05/26/24 02/09/25 Cyclobenzaprine [Flexeril] 10 mg PO TID PRN 02/05/25 02/09/25 Ergocalciferol [Vitamin D2 (1250 1,250 mcg PO [place] 02/05/25 02/09/25 Mcg = 56579 Iu)] Levothyroxine Sodium 44 mcg PO [place] 02/05/25 02/09/25 Previous Rx's Medication Instructions Recorded HYDROcodone/APAP 7.5-325MG [[place] 1 each PO Q4-6H PRN #42 tab 02/09/25 7.5] Sennosides/Docusate Sodium [Senna 2 each PO DAILY PRN #20 tab 02/09/25 Plus 8.6-50 mg Tablet] cefaDROXiL [Duricef] 500 mg PO Q12HR #10 cap 02/09/25 Allergies Allergy/AdvReac Type Severity Reaction Status Date / Time No Known Allergies Allergy Verified 02/14/25 08:59 Review of Systems ROS Statement: Those systems with pertinent positive or pertinent negative responses have been documented in the HPI. ROS Other: All systems not noted in ROS Statement are negative. Past Medical History Past Medical History: Asthma, Cancer, COPD, GERD/Reflux, Hyperlipidemia, Osteoarthritis (OA), Rheumatoid Arthritis (RA), Thyroid Disorder Additional Past Medical History / Comment(s): hx. thyroid cancer-had surg., osteoporosis, chronic back pain History of Any Multi-Drug Resistant Organisms: None Reported Past Surgical History: Appendectomy, Back Surgery, Cholecystectomy, Hysterectomy Additional Past Surgical History / Comment(s): total thyroidectomy, left mastoid surg., myringotomy & tubes, anterior cervical fusion 08/31 Past Anesthesia/Blood Transfusion Reactions: Postoperative Nausea & Vomiting (PONV) Past Psychological History: No Psychological Hx Reported Smoking Status: Current every day smoker - Past Family History Mother Family Medical History: No Reported History Sister(s) Family Medical History: Pulmonary Embolus Additional Family Medical History / Comment(s): w/Covid General Exam Limitations: no limitations General appearance: alert, in no apparent distress Head exam: Present: atraumatic, normocephalic, normal inspection Respiratory exam: Present: normal lung sounds bilaterally. Absent: respiratory distress, wheezes, rales, rhonchi, stridor Cardiovascular Exam: Present: regular rate, normal rhythm Neurological exam: Present: alert, oriented X3, CN II-XII intact Psychiatric exam: Present: normal affect, normal mood Skin exam: Present: other (Surgical incision over the lumbar spine is intact. There is no surrounding erythema or warmth. There is an area at the superior aspect with serosanguineous drainage produced on palpation.) Course Vital Signs 02/14/25 02/14/25 08:55 09:53 Temperature 97.6 F 97.7 F Pulse Rate 119 H 119 H Respiratory 18 18 Rate Blood Pressure 109/75 132/91 O2 Sat by Pulse 95 Oximetry Medical Decision Making - Medical Decision Making This is a 65-year-old female who presents to the emergency department for problems with her surgical incision. Was pt. sent in by a medical professional or institution? @ -No Did you speak to anyone other than the patient for history? @ -No Did you review nursing and triage notes? @ -Yes, and I agree, it is accurate with regards to the patient's symptoms. Were old charts reviewed? @ -Operative note from 02/09/2025 advising that she had a revision bilateral laminectomy, facetectomy, and foraminotomy. Differential Diagnosis? @ -Infection, postoperative seroma, injury, complication, this is not meant to be an all-inclusive list. EKG interpreted by me (3pts min.)? @ -Not obtained X-rays interpreted by me (1pt min.)? @ -Not obtained CT interpreted by me (1pt min.)? @ -Not obtained U/S interpreted by me (1pt. min.)? @ -Not obtained What testing was considered but not performed? (CT, X-rays, U/S, labs)? Why? @ -None What meds were considered but not given? Why? @ -None Did you discuss the management of the patient with other professionals? @ -Yes, Dr. Hayes, orthopedics, who advised antibiotics if she is not already taking them and having her follow-up in the office. Did you reconcile home meds? @ -No Was smoking cessation discussed for >3mins.? @ -No Was critical care preformed (if so, how long)? @ -No Were there social determinants of health that impacted care today? How? (Homelessness, low income, unemployed, alcoholism, drug addiction, transportation, low edu. Level, literacy, decrease access to med. care, [facility]ci, rehab)? @ -No Was there de-escalation of care discussed even if they declined? (Discuss DNR or withdrawal of care, Hospice)? @ -No What co-morbidities impacted this encounter? (DM, HTN, Smoking, COPD, CAD, Cancer, CVA, Hep., AIDS, mental health diagnosis, sleep apnea, morbid obesity)? @ -None Was patient admitted / discharged? @ -Discharged. On exam there was an area at the top of the surgical incision where she had some serosanguineous drainage present, more so when the area was palpated. There was no surrounding erythema, warmth, or foul odor to suggest infection. Aerobic and anaerobic wound culture was obtained. Case discussed with Dr. Hayes, orthopedics, who advised antibiotics if she is not already on them. Patient is on Duricef and will continue taking them as prescribed. Her incision was rebandaged and she was discharged home in stable condition and advised to follow-up with orthopedics. We did also review signs and symptoms of infection to be aware of, which would necessitate the need for her to return. Case discussed with ED attending Dr. Araiza. Return precautions reviewed in depth, the patient is instructed to return to the emergency department with any new, worsening, or concerning symptoms. Patient verbalized understanding. Undiagnosed new problem with uncertain prognosis? @ -None Drug Therapy requiring intensive monitoring for toxicity (Heparin, Nitro, Insulin, Cardizem)? @ -None Were any procedures done? @ -None Diagnosis/symptom? @ -Surgical wound drainage Acute, or Chronic, or Acute on Chronic? @ -Acute Uncomplicated (without systemic symptoms) or Complicated (systemic symptoms)? @ -Uncomplicated Side effects of treatment? @ -None Exacerbation, Progression, or Severe Exacerbation] @ -Not applicable Poses a threat to life or bodily function? @ -Unlikely Disposition Clinical Impression: Drainage from surgical wound, S/P laminectomy Disposition: HOME SELF-CARE Additional Instructions: Return to the emergency department with any new, worsening, or concerning symptoms, especially increasing pain, fevers/chills, redness, puslike drainage, or drainage with a foul odor. Continue taking your antibiotic as prescribed. Follow up with Dr. Hayes. Is patient prescribed a controlled substance at d/c from ED?: No Referrals: Yanni Liu DO [Primary Care Provider] - 1-2 days Time of Disposition: 09:31
[2025-02-14 09:58] VITALS: BP 132/91; TEMP 97.7
== END 2025-02-14 09:56 | disposition home or self-care (01) ==
LOC: EC 08:48
DX: M96.89 Other intraoperative and postprocedural complications and disorders of the musculoskeletal system (principal); F17.200 Nicotine dependence, unspecified, uncomplicated
CPT/HCPCS: 87070; 87075; 87205; 99283

== ENCOUNTER → 2025-03-15 | Outpatient (CLI) | payer OTHER ==
--- NOTE | 2025-03-15 12:25 | CTL ---
EXAMINATION TYPE: CT Low Dose Lung DATE OF EXAM: 03/15/2025 11:36 AM COMPARISON: None. CLINICAL INDICATION: Female, 65 years old with history of Z12.2, F17.210 NICOTINE DEPENDENCE, CIGARET IGNACIO,; curremnt smoker, history of tobacco use. TECHNIQUE: Multiple axial non-contrast scans were obtained from approximately the lung apices through the upper abdomen. Coronal and sagittal reformatted images were obtained. Low dose technique was uti lized. MIP were created on a separate workstation and submitted for review. CT DLP: 41.36 mGycm, Automated exposure control for dose reduction was used. CT Contrast: Contrast used: None Oral contrast used: None FINDINGS: Lack of intravenous contrast and low dose technique limits the evaluation of the vascular and soft ti ssue structures. LUNGS: No evidence of pulmonary fibrosis. No evidence of focal consolidation, pneumothorax or pleural effusion. Centrilobular emphysema changes. Azygous fissure noted. Nodules: Stable few scattered sub-4 mm nodules. Greater than 4 mm pulmonary nodules below: RUL: None. RML: None. RLL: None. MAYANK: LLL: None. AIRWAY: Patent and unremarkable. HEART: Size within normal limits. No significant coronary artery calcifications. MEDIASTINUM: No gross evidence of adenopathy. VASCULATURE: No aortic aneurysm. MUSCULOSKELETAL: No acute osseous abnormalities SOFT TISSUES/LYMPH NODES: Unremarkable. LOWER NECK: No significant findings. UPPER ABDOMEN: Right upper quadrant cholecystectomy clips. IMPRESSION: 1. No clinically significant pulmonary nodules. 2. Mild emphysema. CT LUNG RAD AND CT CHEST RECOMMENDATION: Lung-Rad 2 Benign Appearance or Behavior: Continue annual sc reening with LDCT in 12 months. S Modifier (other clinically significant findings): None Recommend smoking cessation (if current smoker), or continuation of smoking cessation (if prior smoke r). Annual screening for lung cancer with low-dose computed tomography is recommended in adults ages 55 to 77 years who have a 30 pack-year smoking history and currently smoke or have quit within the pa st 15 years. Screening should be discontinued once a person has not smoked for 15 years or develops a health problem that substantially limits life expectancy or the ability or willingness to have curat iker lung surgery. Lung rads 2021 [email or web address] [email or web address], , 03/15/2025 12:23 PM
== END | disposition home or self-care (01) ==
LOC: RADCTMAIN 11:00
PROVIDERS: ATTEND Internal Medicine Critical Care Medicine
DX: Z12.2 Encounter for screening for malignant neoplasm of respiratory organs (principal); F17.210 Nicotine dependence, cigarettes, uncomplicated; J43.2 Centrilobular emphysema
CPT/HCPCS: 71271